=== PATIENT | male | born 1960 | race Caucasian/White ===

== ENCOUNTER 2020-09-17 09:13 | Outpatient (CLI) | payer OTHER, SELFPAY ==
--- NOTE | 2020-09-17 09:26 | MR_ITS ---
WS: [id number] MRI LUMBAR SPINE NONCONTRAST TECHNIQUE: Sagittal T1, T2 and STIR imaging. Axial T1 and T2 imaging. CLINICAL INFORMATION: ACUTE LOW BACK PAIN COMPARISON: None. FINDINGS: Mild lumbar curve. No acute compression. Pedicle screw fixation L4-5 with interbody fusion. Schmorl's nodes in the lower thoracic and upper lumbar spine. L1-L2: Normal. L2-L3: No significant disc bulging. Mild facet arthropathy. Spinal canal and foramen are patent. L3-L4: Mild annular bulging with a small central protrusion and tiny annular fissure. Mild central ca nal stenosis. Mild facet arthropathy. Foramen are patent. L4-L5: Pedicle screw fixation with interbody fusion. Mild facet arthropathy. Spinal canal and foramen are patent. L5-S1: No significant disc bulging. Mild facet arthropathy. Spinal canal and foramen are patent. Mild disc bulging C5-C6 on the chainstitch hemmer imaging. Mild central canal stenosis. Visualized pelvic bony structures: Normal. Paravertebral soft tissues: Normal. MR/MR lumbar spine wo con* [id number] IMPRESSION: 1. Mild lumbar curve. No acute compression. No high-grade central canal stenos is. 2. Pedicle screw fixation L4-5 with interbody fusion. 3. Mild annular bulging L3-4 with a small shallow central protrusion and tiny annular fissure. Mild central canal stenosis. 4. Mild facet arthropathy L3-L5. 5. Tiny central protrusion C5-6 with mild central canal stenosis in the chainstitch hemmer imaging.
--- NOTE | 2020-09-17 09:28 | XR_ITS ---
WS: [id number] LUMBAR SPINE TECHNIQUE: 3 views of the lumbar spine CLINICAL INFORMATION: LOW BACK PAIN COMPARISON: None. FINDINGS: Osteopenia. Minimal lumbar curve. Pedicle screw fixation L4-5. Interbody bone fusion L4-5 is solid in appearance. Mild chronic anterior wedging in the lower thoracic and upper lumbar spine. Mild facet a rthropathy L4-L5 and L5-S1. XR/XR lumbar spine 2-3V* [id number] IMPRESSION: 1. Normal L4-5 pedicle screw fixation with interbody bony fusion. 2. No other significant findings.
== END 2020-09-17 09:14 | disposition home or self-care (01) ==
PROVIDERS: PCP Nurse Practitioner; Visit Provider Nurse Practitioner
DX: M54.5 Low back pain (principal); M50.222 Other cervical disc displacement at C5-C6 level; M47.816 Spondylosis without myelopathy or radiculopathy, lumbar region
CPT/HCPCS: 72100; 72148

== ENCOUNTER → 2021-08-09 00:01 | Outpatient (BNVA) | payer OTHER, SELFPAY | PROVIDERS: PCP Nurse Practitioner; Visit Provider Registered Nurse Neonatal Intensive Care | DX: Z20.822 Contact with and (suspected) exposure to COVID-19 (principal) | CPT/HCPCS: 87635 ==

== ENCOUNTER 2021-09-24 10:01 | Inpatient (IN) | payer OTHER, SELFPAY ==
[2021-09-24 10:11] VITALS: BP 132/11; PULSE 69; RESP 14; BMI 32.8
--- NOTE | 2021-09-24 10:25 | ECG_ITS ---
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 Measurements Intervals [place] Rate: 69 P: 43 SC: 197 QRS: 2 QRSD: 109 T: 31 QT: 370 QTc: 398 Interpretive Statements SINUS RHYTHM WITH OCCASIONAL SUPRAVENTRICULAR PREMATURE COMPLEXES No previous ECG available for comparison Electronically Signed On 09-24-2021 17:33:49 IT FIELD TECHNICIAN by Jez Oliva M.D. [email or web address] memorial hospitalBatzu Med[facility]ub[email or web address]/NU/[id number] f
--- NOTE | 2021-09-24 10:25 | XR_ITS ---
WS: [id number] PORTABLE CHEST HISTORY: RIGHT shoulder and chest pain. COMPARISON: 06/24/2015 Radiograph obtained in a lordotic position. The lungs are clear. No effusion. Normal vasculature. No pneumonia. No pleural effusion or pneumothorax. Cardiac size: Normal. Mediastinum/Aorta: Normal mediastinum. No osseous abnormality seen. XR/XR chest 1V portable [id number] IMPRESSION: No acute cardiopulmonary disease.
--- NOTE | 2021-09-24 10:29 | PC.NURSE ---
pt placed on continuous spo2, nibp, and cm.
[2021-09-24 10:49] LABS: Basophils # 0.1 10^3/uL (0.0-0.1); Basophils % 1.7 %; Eosinophils # 0.3 10^3/uL (0.0-0.8); Eosinophils % 6.3 %; Hematocrit 45.8 % (42.0-52.0); Hemoglobin 15.2 g/dL (11.7-16.6); Lymphocytes # 1.5 10^3/uL (0.8-4.8); Lymphocytes % 28.8 %; Mean Corpuscular HGB Conc 33.2 g/dL (30.0-36.0); Mean Corpuscular Volume 90.5 fl (80-94); Mean Platelet Volume 10.8 fL (7.4-10.4); Monocytes # 0.7 10^3/uL (0.2-0.9); Monocytes % 12.7 %; Neutrophils # 2.66 10^3/uL (1.8-7.7); Neutrophils % 50.3 %; Nucleated Red Blood Cells % 0 %; Platelet Count 222 10^3/cmm (130-400); Red Blood Count 5.06 10^6/uL (4.1-5.3); White Blood Count 5.3 10^3/uL (4.0-10.0)
[2021-09-24 11:05] LABS: Alanine Aminotransferase 61 U/L (0-41); Albumin Level 4.7 g/dL (3.5-5.2); Alkaline Phosphatase 80 IU/L (40-130); Anion Gap 17.4 (5-19); Aspartate Amino Transferase 47 U/L (0-40); Blood Urea Nitrogen 13 mg/dL (8-23); Carbon Dioxide 23 mmol/L (22-29); Chloride 101 mmol/L (98-107); Globulin 3.1 g/dL (1.3-4.6); Glomerular Filtration Rate 75.5 mL/min (90-130); Glucose 110 mg/dL (65-115); Osmolality Calculated 285 mOsm/kg (285-295); Potassium 4.4 mmol/L (3.5-5.1); Sodium 137 mmol/L (136-145); Total Bilirubin 0.6 mg/dL (0.15-1.2); Total Protein 7.8 g/dL (6.6-8.7)
[2021-09-24 11:06] LABS: Troponin(5th) Baseline 28 ng/L (0-15)
[2021-09-24 11:07] LABS: Creatine Phosphokinase 450 U/L (39-308)
--- NOTE | 2021-09-24 11:07 | W.ED.CHESTPA ---
HPI - Chest Pain General: Chief Complaint: Chest Pain Stated Complaint: cp Time Seen by Provider: 09/24/21 10:24 Source: patient Mode of arrival: ambulatory Limitations: no limitations History of Present Illness: 61-year-old female presents to the emergency room with complaint of chest pain radiating to the right shoulder. Began while at rest has had several waxing and waning type episodes. He was talking to him he noticed some increased discomfort. Is not been associated with diaphoresis nausea or vomiting or shortness of breath. He states 2 days ago he walks 3-1/2 miles he seemed a little sore after that but he never had any chest pain during the night. He has not taken anything for it. MD complaint: chest pain Onset (ago): minute(s) Timing of current episode: episodic Prior episodes: No Onset: during rest Pain location: substernal Pain radiation: right shoulder Severity: mild Quality: aching Relieving factors: nothing Exacerbating factors: nothing Associated symptoms: Deny abdominal pain, diaphoresis, dyspnea, fever(s), leg edema, nausea, palpitations, sense of impending doom, syncope or vomiting Treatment prior to arrival: none Review of Systems Const: Denies: fever(s) or diaphoresis ENMT: Denies: throat pain, ear or mastoid pain, nasal discharge or nasal congestion Card: Denies: palpitations or syncope Resp: Denies: dyspnea GI: Denies: abdominal pain, nausea or vomiting : Denies: flank pain, dysuria, urinary frequency or urinary urgency Skin/Breast: Denies: rash or pruritus [facility] ED PFSH: Medical History COVID-19 07/2021 Diverticulitis HTN (hypertension) Hypertriglyceridemia Hypothyroidism Osteoarthritis Personal history of chronic sinusitis Status post administration of all doses of COVID-19 vaccine series Surgical History History of back surgery History of bowel resection 2019 History of elbow surgery History of laparoscopy S/P cholecystectomy 1994 S/P eye surgery S/P left knee arthroscopy 2012 S/P lumbar spinal fusion 2009 Family History Mother Diabetes Father Diabetes Heart disease Family history of CABG Sister Diabetes Other Heart failure Social History Smoking and tobacco status: never smoked Substance/Drug Use: never Marital status: Current occupational status: retired 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 [employer] 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 Physical Exam Const: COMMON NORMALS: no acute distress GENERAL APPEARANCE: cooperative and comfortable ORIENTATION/CONSCIOUSNESS: Yes awake, Yes oriented to person, Yes oriented to place and Yes oriented to time HENMT: COMMON NORMALS: normocephalic, atraumatic, hearing grossly normal bilaterally, external ears normal, EAC's normal, TM's normal bilaterally and Normal nasal mucous membranes and turbinates present HEAD & SCALP: normocephalic and atraumatic NOSE: Normal nasal mucous membranes and turbinates present EXTERNAL EAR: Yes external ears normal EXTERNAL AUDITORY CANAL: EAC's normal TYMPANIC MEMBRANE: TM's normal bilaterally Eye: COMMON NORMALS: Equal, round and reactive pupils present, EOMs intact bilaterally, conjunctivae normal and no scleral icterus CONJUNCTIVA: Yes conjunctivae normal PUPIL: Yes Equal, round and reactive pupils present Neck/C-Spine: COMMON NORMALS: no JVD Lymph: LYMPHATIC: no lymphadenopathy noted and no lymphedema noted Resp: COMMON NORMALS: normal respiratory effort, No retractions, No use of accessory muscles and clear to auscultation bilaterally AUSCULTATION: clear to auscultation bilaterally Cardio: COMMON NORMALS: no JVD, regular rate, regular rhythm and No murmurs present (Cardio) RATE: regular rate RHYTHM: regular rhythm GI: COMMON NORMALS: Soft to palpation and No hepatosplenomegaly present AUSCULTATION: Yes normoactive bowel sounds PALPATION: Yes Soft to palpation, No Tenderness to palpation present (GI), No Guarding due to palpation present (GI) and Yes No hepatosplenomegaly present Extremity: COMMON NORMALS: normal to inspection, capillary refill normal, no clubbing, cyanosis or edema, no calf tenderness and no pedal edema Neuro: SENSORIUM/ORIENTATION: Yes oriented to person, Yes oriented to place and Yes oriented to time Skin: COMMON NORMALS: no rashes or lesions noted GENERAL SKIN EXAM: no rashes or lesions noted Course Vital Signs: Vital signs: Vital Signs Temperature 97.8 F 09/25/21 15:33 Pulse Rate 53 L 09/26/21 04:25 Respiratory Rate 14 09/26/21 04:00 Blood Pressure 126/87 09/26/21 04:00 Pulse Oximetry 93 09/26/21 03:30 MDM - Chest Pain Medical Decision Making Symptoms waxing and waning while at rest with positive delta troponin. We will go ahead and admit the patient discussed with hospitalist consult cardiology. No acute EKG changes, reviewed as found in the chart. Medical Records I reviewed the patient's medical records. Lab Data I reviewed the patient's lab results. : 09/26/21 02:38 09/26/21 02:38 Radiology Impressions Chest X-Ray 09/24/21 10:25 IMPRESSION: No acute cardiopulmonary disease. Laboratory Results WBC 5.3 10^3/uL (4.0-10.0) 09/24/21 10: RBC 5.06 10^6/uL (4.1-5.3) 09/24/21 10:22 Hgb 15.2 g/dL (11.7-16.6) 09/24/21 10:22 Hct 45.8 % (42.0-52.0) 09/24/21 10:22 MCV 90.5 fl (80-94) 09/24/21 10:22 MCH 30.0 pg (28.0-34.0) 09/24/21 10:22 MCHC 33.2 g/dL (30.0-36.0) 09/24/21 10:22 RDW 13.0 % (12.1-15.1) 09/24/21 10:22 Plt Count 222 10^3/cmm (130-400) 09/24/21 10:22 MPV 10.8 fL (7.4-10.4) H 09/24/21 10:22 Neut % (Auto) 50.3 % 09/24/21 10:22 Lymph % (Auto) 28.8 % 09/24/21 10:22 [place] % (Auto) 12.7 % 09/24/21 10:22 Eos % (Auto) 6.3 % 09/24/21 10:22 Baso % (Auto) 1.7 % 09/24/21 10:22 Neut # (Auto) 2.66 10^3/uL (1.8-7.7) 09/24/21 10:22 Lymph # (Auto) 1.5 10^3/uL (0.8-4.8) 09/24/21 10:22 [place] # (Auto) 0.7 10^3/uL (0.2-0.9) 09/24/21 10:22 Eos # (Auto) 0.3 10^3/uL (0.0-0.8) 09/24/21 10:22 Baso # (Auto) 0.1 10^3/uL (0.0-0.1) 09/24/21 10:22 Nucleated RBC % (auto) 0 % 09/24/21 10:22 Nucleated RBCs # 0.0 /100WBC 09/24/21 10:22 PT 13.10 SECONDS (12.1-14.9) 09/24/21 10: INR 0.96 (0.8-1.2) 09/24/21 10: APTT 29.2 SECONDS (23.9-36.7) 09/24/21 10:22 D-Dimer 0.32 ug/mIFEU (0-0.59) 09/24/21 10:20 Sodium 137 mmol/L (136-145) 09/24/21 10:22 Potassium 4.4 mmol/L (3.5-5.1) 09/24/21 10:22 Chloride 101 mmol/L (98-107) 09/24/21 10: Carbon Dioxide 23 mmol/L (22-29) 09/24/21 10:22 Anion Gap 17.4 (5-19) 09/24/21 10:22 BUN 13 mg/dL (8-23) 09/24/21 10:22 Creatinine 1.0 mg/dL (0.7-1.2) 09/24/21 10:22 GFR Calculation 75.5 mL/min (90-130) L 09/24/21 10:22 Glucose 110 mg/dL (65-115) 09/24/21 10:22 Calculated Osmolality 285 mOsm/kg (285-295) 09/24/21 10:22 Calcium 10.0 mg/dL (8.5-10.5) 09/24/21 10:22 Total Bilirubin 0.6 mg/dL (0.15-1.2) 09/24/21 10:22 AST 47 U/L (0-40) H 09/24/21 10:22 ALT 61 U/L (0-41) H 09/24/21 10:22 Alkaline Phosphatase 80 IU/L (40-130) 09/24/21 10:22 Creatine Kinase 450 U/L (39-308) H* 09/24/21 10:22 CK-MB (CK-2) 5.1 ng/mL (0-10.4) 09/24/21 12:04 CK-MB (CK-2) Rel Index 5.5 % (0.0-5.3) H 09/24/21 10:22 Troponin T Baseline 28 ng/L (0-15) H 09/24/21 10:22 Troponin T 120 Minute 39.22 ng/L (0-15) H 09/24/21 12:04 Delta Troponin T 11.22 ABS# (0-10) H* 09/24/21 12:04 Troponin T Hi Sens 6Hr 49.04 ng/L (0-15) H 09/24/21 16:36 Troponin T Hi Sens 6Hr Delta 21.04 ng/L (0-12) H* 09/24/21 16:36 NT-Pro-B Natriuret Pep 5 pg/mL (0-125) 09/24/21 12:04 Total Protein 7.8 g/dL (6.6-8.7) 09/24/21 10:22 Albumin 4.7 g/dL (3.5-5.2) 09/24/21 10:22 Globulin 3.1 g/dL (1.3-4.6) 09/24/21 10:22 Discharge Plan Discharge Patient Disposition: Admitted As Inpatient Admit Provider: Michelle Cote Clinical Impression: Non-ST elevation DC (NSTEMI), HTN (hypertension), Transaminitis, History of COVID-19, Hypothyroidism Condition: Stable Coding Level of Care Code ED Manager Community for [facility]g Fwd Exam Comprehensive
--- NOTE | 2021-09-24 12:25 | ECG_ITS ---
[facility] Test Date: 2021-09-24 Pat Name: Avni Carlson Department: Room: Gender: Male Quality Head: : 1960 Requested By: Ricardo Maya Order Number: [id number] Alanna MD: Jez Oliva M.D. Measurements Intervals [place] Rate: 61 P: 45 ND: 198 QRS: 5 QRSD: 114 T: 23 QT: 386 QTc: 390 Interpretive Statements SINUS RHYTHM MODERATE INTRAVENTRICULAR CONDUCTION DELAY [110+ ms QRS DURATION] Compared to ECG 09/24/2021 10:16:33 Intraventricular conduction delay now present Electronically Signed On 09-24-2021 17:37:56 DIE TESTER by Jez Oliva M.D. [id number]
[2021-09-24 12:33] LABS: Troponin 5 2HR 39.22 ng/L (0-15)
[2021-09-24 12:35] LABS: Troponin 5 2HR Delta 11.22 ABS# (0-10)
--- NOTE | 2021-09-24 13:25 | PM.HP ---
Providers/Chief Complaint Admitting Physician: Michelle Cote MD Primary Care Provider: Loretta Norman APN Chief Complaint: chest pain History of Present Illness Avni Carlson is a 61 year old male who presented to the emergency room with chief complaint of chest pain. In talking with him he has been having intermittent issues with right shoulder pain off and on that he attributed to arthritis discomfort. This past Thursday the pain was more significant after he went for 3 mile or so walk. He had previously walked several miles a day regularly, but over the course of the last 2 years has had several medical issues and has gotten out of the habit. Most recently he had COVID at the end of July and this past Thursday was his first time getting out after that. The pain seemed to be present with walking and went away with rest. He had some intermittent discomfort in the shoulder yesterday but again did not think much of it. 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 He described the pain as like a torn ligament . It was waxing and waning chest pain that started out as mild but progressively worsened. He had some diaphoresis and reports dizziness when he bends over but denied any associated shortness of breath, nausea, vomiting or palpitations. Blood pressure was checked at the school and was found to be elevated at 170/110. With continued episodes of significant chest discomfort, he called his and said he was coming into the emergency room. On arrival here, blood pressures were 140s over 80s. He was given some nitroglycerin and IV morphine with improvement in his chest pain as well as his right arm pain. While in the emergency room he had recurrence of the discomfort that again resolved after receiving nitroglycerin. Initial troponin was in the mid 20s. 2-hour troponin showed delta at 11. Patient was given Lovenox treatment dose and some Nitropaste and is being admitted for further evaluation and treatment. At the time of my evaluation he has not had recurrence of his symptoms although it has only been 20 to 30 minutes or so since last treatments were administered. Twelve-lead EKG does not show any acute ST segment changes. Patient has history of hypertension and hypertriglyceridemia but denies personal history of coronary artery disease. His father did have heart problems in his 50s and underwent bypass surgery three-vessel. Review of Systems Const: Reports: change in sleep pattern (Poor sleep); Denies: fever(s) or chills ENMT: Reports: nasal congestion (chronic sinus symptoms) and epistaxis (Has a small amount of bright red blood every morning when he blows his nose); Denies: throat pain Card: Reports: chest pain, lightheadedness (with bending over) and dyspnea on exertion; Denies: palpitations, edema or orthopnea Resp: Denies: dyspnea, productive cough, non-productive cough or pain on inspiration GI: Reports: nausea and other (no recent change in bowel movement); Denies: abdominal pain, vomiting, hematochezia or melena : Reports: difficulty starting urination and nocturia (x 1); Denies: hematuria Musc: Reports: neck pain, back pain, extremity pain (right shoulder as per HPI today; often general aches and pains otherwise) and other (back and neck pain limit physical activity sometimes) Skin/Breast: Denies: sores Neuro: Denies: numbness in extremities, weakness in extremities, Slurred speech present or difficulty communicating thoughts Psych: Denies: anxiety or depression Man/Lymph: Denies: easy bruising or easy bleeding Medications/Allergies Home Medications Medication Instructions Recorded Confirmed Last Taken Type fenofibrate nanocrystallized 145 145 mg PO QDAY 08/15/19 09/24/21 09/23/21 History mg tablet fluticasone propionate 50 2 spray INTRANASAL QDAY 08/15/19 09/24/21 09/23/21 History mcg/actuation nasal spray,suspension (Flonase Allergy Relief) hydrocodone 5 mg-acetaminophen 325 1 tab PO Q6H PRN 08/15/19 09/24/21 09/23/21 History mg tablet levothyroxine 150 mcg capsule 150 mcg PO QDAY 08/15/19 09/24/21 09/23/21 History loratadine 10 mg tablet (Claritin) 10 mg PO QDAY 08/15/19 09/24/21 09/23/21 History omeprazole magnesium 20 mg 20 mg PO QDAY 08/15/19 09/24/21 09/23/21 History tablet,delayed release (Prilosec OTC) cyclobenzaprine 10 mg tablet 10 mg PO DAILY PRN 09/24/21 09/24/21 Unknown History olmesartan 5 mg tablet 5 mg PO DAILY 09/24/21 09/24/21 09/24/21 History Allergies Allergy/AdvReac Type Severity Reaction Status Date / Time lisinopril Allergy Unknown Unknown Verified 08/09/21 12:10 PFSH Acute PFSH: Medical History (Updated 09/24/21 @ 19:53 by Michelle Cote MD) COVID-19 07/2021 Diverticulitis HTN (hypertension) Hypertriglyceridemia Hypothyroidism Osteoarthritis Personal history of chronic sinusitis Status post administration of all doses of COVID-19 vaccine series Surgical History History of back surgery History of bowel resection 2019 History of elbow surgery History of laparoscopy S/P cholecystectomy 1994 S/P eye surgery S/P left knee arthroscopy 2012 S/P lumbar spinal fusion 2009 Family History Mother Diabetes Father Diabetes Heart disease Family history of CABG Sister Diabetes Other Heart failure Social History (Updated 09/24/21 @ 20:23 by Michelle Cote MD) Smoking and tobacco status: never smoked Marital status: Current occupational status: retired 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 [employer] 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 Vitals/I&O/Wt Last Vital Signs Pulse 69 09/24/21 10:11 Resp 14 09/24/21 10:11 BP 132/11 09/24/21 10:11 Weight last 48 hrs Weight 122.47 kg Physical Exam Narrative: Constitutional: Awake and alert, cooperative HEENT: Normocephalic, atraumatic, pupils are equal reactive, moist mucous membranes Neck: Supple Respiratory: Clear to auscultation without any rales rhonchi or wheezes noted, no accessory muscle use Cardiovascular: Regular rate and rhythm without any murmurs gallops or rubs Abdomen: Soft, nontender, positive bowel sounds Extremities: No pitting edema or calf tenderness, good range of motion of the right shoulder without any reproducible point tenderness or pain in extension, abduction, abduction, internal and external rotation Skin: Dry, no rashes Neuro: Speech clear, face symmetric, handgrip equal, strength equal both lower extremities, no abnormal movements Psych: Normal affect, oriented x 4 Data : 09/24/21 10:22 09/24/21 10:22 Other Labs: Radiology Impressions Chest X-Ray 09/24/21 10:25 IMPRESSION: No acute cardiopulmonary disease. Laboratory Results WBC 5.3 10^3/uL (4.0-10.0) 09/24/21 10: RBC 5.06 10^6/uL (4.1-5.3) 09/24/21 10: Hgb 15.2 g/dL (11.7-16.6) 09/24/21 10:22 Hct 45.8 % (42.0-52.0) 09/24/21 10:22 MCV 90.5 fl (80-94) 09/24/21 10: MCH 30.0 pg (28.0-34.0) 09/24/21 10: MCHC 33.2 g/dL (30.0-36.0) 09/24/21 10: RDW 13.0 % (12.1-15.1) 09/24/21 10: Plt Count 222 10^3/cmm (130-400) 09/24/21 10: MPV 10.8 fL (7.4-10.4) H 09/24/21 10:22 Neut % (Auto) 50.3 % 09/24/21 10:22 Lymph % (Auto) 28.8 % 09/24/21 10:22 [place] % (Auto) 12.7 % 09/24/21 10:22 Eos % (Auto) 6.3 % 09/24/21 10:22 Baso % (Auto) 1.7 % 09/24/21 10:22 Neut # (Auto) 2.66 10^3/uL (1.8-7.7) 09/24/21 10:22 Lymph # (Auto) 1.5 10^3/uL (0.8-4.8) 09/24/21 10:22 [place] # (Auto) 0.7 10^3/uL (0.2-0.9) 09/24/21 10:22 Eos # (Auto) 0.3 10^3/uL (0.0-0.8) 09/24/21 10:22 Baso # (Auto) 0.1 10^3/uL (0.0-0.1) 09/24/21 10:22 Nucleated RBC % (auto) 0 % 09/24/21 10:22 Nucleated RBCs # 0.0 /100WBC 09/24/21 10:22 Sodium 137 mmol/L (136-145) 09/24/21 10:22 Potassium 4.4 mmol/L (3.5-5.1) 09/24/21 10:22 Chloride 101 mmol/L (98-107) 09/24/21 10:22 Carbon Dioxide 23 mmol/L (22-29) 09/24/21 10:22 Anion Gap 17.4 (5-19) 09/24/21 10:22 BUN 13 mg/dL (8-23) 09/24/21 10:22 Creatinine 1.0 mg/dL (0.7-1.2) 09/24/21 10:22 GFR Calculation 75.5 mL/min (90-130) L 09/24/21 10:22 Glucose 110 mg/dL (65-115) 09/24/21 10:22 Calculated Osmolality 285 mOsm/kg (285-295) 09/24/21 10:22 Calcium 10.0 mg/dL (8.5-10.5) 09/24/21 10:22 Total Bilirubin 0.6 mg/dL (0.15-1.2) 09/24/21 10:22 AST 47 U/L (0-40) H 09/24/21 10:22 ALT 61 U/L (0-41) H 09/24/21 10:22 Alkaline Phosphatase 80 IU/L (40-130) 09/24/21 10:22 Creatine Kinase 450 U/L (39-308) H* 09/24/21 10:22 CK-MB (CK-2) Rel Index 5.5 % (0.0-5.3) H 09/24/21 10:22 Troponin T Baseline 28 ng/L (0-15) H 09/24/21 10:22 Troponin T 120 Minute 39.22 ng/L (0-15) H 09/24/21 12:04 Delta Troponin T 11.22 ABS# (0-10) H* 09/24/21 12:04 Total Protein 7.8 g/dL (6.6-8.7) 09/24/21 10:22 Albumin 4.7 g/dL (3.5-5.2) 09/24/21 10:22 Globulin 3.1 g/dL (1.3-4.6) 09/24/21 10:22 A&P Assessment and plan (1) Acute coronary syndrome with high troponin: In a patient without known history of CAD. Pain radiates to right shoulder rather than left but is otherwise fairly classic description for unstable angina. Has risks factors of family history, known hypertension, known hypertriglyceridemia, BMI 32 Status: Acute (2) Transaminitis: Mild. Reports had some elevation when last had blood work by PCP, values not available for comparison. Had COVID at end . Not grossly volume overloaded. No abdominal pain but some nausea. Status: Acute (3) HTN (hypertension): Chronically on low dose olmesartan Status: Chronic Qualifiers: Hypertension type: primary hypertension Qualified Code(s): I10 - Essential (primary) hypertension (4) Hypertriglyceridemia: Chronically on fenofibrate Status: Chronic (5) BMI 32.0-32.9,adult: Status: Acute (6) Hypothyroidism: Chronically on levothyroxze Status: Chronic Qualifiers: Hypothyroidism type: acquired Qualified Code(s): E03.9 - Hypothyroidism, unspecified (7) Osteoarthritis: With chronic back and neck pain, as well as some joint pains, has prescriptions for hydrocodone and flexeril but takes neither daily Status: Chronic Qualifiers: Osteoarthritis location: multiple joints Osteoarthritis type: primary Qualified Code(s): M15.9 - Polyosteoarthritis, unspecified (8) History of COVID-19: Tested positive via home test 08/08/2021, received monoclonal antibody treatment, was vaccinated prior to infection Status: Chronic Plan Observation admission for now Continue serial cardiac enzymes and EKGs, add MB fraction Continue full anticoagulation Continue nitroglycerin Aspirin and statin therapy Cardiology consultation, have spoken with Dr. Osei, to facilitate determination of preferred testing, stress testing versus cardiac catheterization Beta-blockade Continue home fenofibrate Continue low-dose ARB Echocardiogram has been ordered Check BNP and coagulation studies Lipid panel in the morning Telemetry monitoring Monitor blood pressures with additional medications Recheck LFTs in the morning Continue home levothyroxine Continue home Flonase, Claritin for allergies Continue as needed hydrocodone and Flexeril Check D-dimer given symptoms and COVID diagnosis at the end July, with patient and his that study will be primarily useful if it is normal Lovenox treatment dose will provide appropriate VTE prophylaxis currently Supportive care otherwise Findings, concerns and plans were discussed with patient and his and both were given an opportunity to ask questions Currently anticipate discharge home with outpatient follow-up though will ultimately depend on clinical course Full code Attestations Medical Necessity Statement*: Currently anticipate a stay less than two midnights in the patient with chest pain that, while a touch atypical, is quite suspicious for unstable angina with positive troponin delta of 11. Plans are as noted above. Given escalation of symptoms today and risk factors at risk of cardiovascular compromise if appropriate evaluation and treatment is not undertaken. 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
[2021-09-24] MEDS: enoxaparin 120 mg/0.8 mL Syringe SUBCUT (13:29)
[2021-09-24 13:30] VITALS: RESP 20
[2021-09-24 13:30] LABS: CKMB Relative Index 5.5 % (0.0-5.3)
[2021-09-24] MEDS: aspirin 81 mg Chew Tablet 324 MG PO (13:30)
[2021-09-24] MEDS: morphine 4 mg/mL SDV 1 mL IVP (13:30)
--- NOTE | 2021-09-24 13:30 | USCV_ITS ---
Avni Carlson Age: 61 Gender: M : 1960 Exam Date: 09/24/2021 14:35 Ordering Phys: Michelle Cote MD Technologist: Nikko Bowers [place] [facility] [place] CHEST PAIN WITH INCREASING TROPONIN BP: 133 / 86 HR: 67 Rhythm: Sinus Technical Quality: Adequate MEASUREMENTS (Male / Female) Normal Values 2D ECHO LV Diastolic Diameter PLAX 4.1 cm 4.2 - 5.9 / 3.9 - 5.3 cm LV Systolic Diameter PLAX 2.7 cm IVS Diastolic Thickness 1.0 cm 0.6 - 1.0 / 0.6 - 0.9 cm IVS Systolic Thickness 1.3 cm LVPW Diastolic Thickness 1.4 cm 0.6 - 1.0 / 0.6 - 0.9 cm LVPW Systolic Thickness 1.6 cm LVOT Diameter 2.0 cm LV Ejection Fraction 2D Teich 61.6 % LV Ejection Fraction MOD 2C 69.3 % LV Ejection Fraction 2C AL 70.5 % LA Diameter 3.5 cm LA Width 2.8 cm LA Height 3.6 cm RA Width 2.9 cm RA Height 4.1 cm Aorta at Sinotubular Diameter 2.6 cm M-MODE Aortic Annulus Diameter 3.8 cm LA Ao Ratio MM 0.9 MV E Point Septal Separation 0.5 cm DOPPLER AV Peak Velocity 91.0 cm/s LVOT Peak Velocity 75.0 cm/s AV Area Cont Eq vti 2.9 cm squared AV Area Cont Eq pk 2.7 cm squared MV Area PHT 3.9 cm squared Mitral E to A Ratio 0.8 MV E' Velocity 47.0 cm/s Mitral E to LV E' Septal Ratio 7.9 TR Peak Velocity 210.8 cm/s TR Peak Gradient 17.8 mmHg TR Mean Velocity 181.4 cm/s TR Mean Gradient 13.3 mmHg TR Velocity Time Integral 60.5 cm RV Acceleration Time 0.2 s RV Ejection Time 0.3 s RV AcT/ET 0.6 FINDINGS Left Ventricle Normal left ventricular size and systolic function, EF 67 %. No regional wall motion abnormalities. Grade I/IV diastolic dysfunction (abnormal relaxation filling pattern), normal to mildly elevated filling pressures. Mild left ventricular hypertrophy. Right Ventricle The right ventricle is normal in size and function. Right Atrium The right atrium is normal in size. Left Atrium The left atrium is normal in size. Mitral Valve Thickened mitral valve. Aortic Valve No gross abnormalities noted Tricuspid Valve No gross abnormalities noted Pulmonic Valve Pulmonic valve not well visualized. Pericardium Normal pericardium without effusion. Aorta Normal ascending aorta dimension. CONCLUSIONS Normal left ventricular size and systolic function, EF 67 %. No regional wall motion abnormalities. Grade I/IV diastolic dysfunction (abnormal relaxation filling pattern), normal to mildly elevated filling pressures. Mild left ventricular hypertrophy. Thickened mitral valve. No other valvular abnormalities. Normal chamber sizes. No pericardial effusion No previous study is available for comparison. Dr Theodore Osei MD FACC (Electronically Signed) Final Date: 24 September 2021 16:32 S
[2021-09-24] MEDS: nitroglycerin 1 gm/inch oint Pkt 1 INCH TOPICAL ×2 (13:31→20:44)
[2021-09-24 13:55] LABS: INR 0.96 (0.8-1.2)
[2021-09-24 13:56] LABS: Partial Thromboplastin Time 29.2 SECONDS (23.9-36.7)
[2021-09-24 14:11] LABS: CKMB 5.1 ng/mL (0-10.4); NT Pro B Type Natriuretic Pept 5 pg/mL (0-125)
--- NOTE | 2021-09-24 15:04 | PC.NURSE ---
WHILE AT BEDSIDE ULTRASOUND AT BEDSIDE. PT IS IN NAD. PT DENIES ANY FURTHER NEEDS.
[2021-09-24 16:15] LABS: D Dimer 0.32 ug/mIFEU (0-0.59)
--- NOTE | 2021-09-24 16:25 | ECG_ITS ---
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 Measurements Intervals [place] Rate: 62 P: 50 DE: 206 QRS: 10 QRSD: 111 T: 34 QT: 394 QTc: 402 Interpretive Statements SINUS RHYTHM MODERATE INTRAVENTRICULAR CONDUCTION DELAY [110+ ms QRS DURATION] Compared to ECG 09/24/2021 12:32:40 No significant changes Electronically Signed On 09-24-2021 17:37:48 CONCRETE CURER by Jez Oliva M.D. [email or web address]
[2021-09-24 17:14] LABS: Troponin 5 6HR 49.04 ng/L (0-15)
[2021-09-24 17:16] LABS: Troponin 5 6HR Delta 21.04 ng/L (0-12)
--- NOTE | 2021-09-24 17:22 | P.CONIM_ITS ---
Providers/Reason For Consult Consulting Physician/Specialty*: SANDRA Osei MD/cardiology Reason for Consult*: Patient with chest pain, high blood pressure, dyslipidemia, elevated troponin T Requesting Physician: Dr. Cote Attending Physician: Dr. Cote Primary Care Provider: Loretta Norman APN History of Present Illness History of Present Illness Avni Carlson is a 61 year old male with a history of hypertension and dyslipidemia, apparently has been in his baseline state of health up until 7.45 this morning when he started having right shoulder pain associated with pain in the mid substernal region and a hot feeling. 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 His blood pressure was found to be elevated in the 170s at that time. The intensity of the pain was moderate to severe. He had a several episodes of pain, each time lasting for 5 minutes to 30 minutes. Because of these episodes, he decided to come home. The pain might have subsided for a while but then it started coming back again. Because of these recurrent episodes of pains, he decided come to the hospital emergency room. In the emergency room also, he had a few episodes of pains. He was given IV morphine, sublingual nitro, topical nitrates and p.o. aspirin. He also was given subcu Lovenox. His symptoms finally started subsiding. For the last 3 hours or so, he is totally pain-free. He has no other associated symptoms or radiation of pain. He has no obvious history for any coronary disease, myocardial infarction or congestive heart failure. A week ago, he had some substernal chest pain which lasted for couple of minutes and then subsided spontaneously. He never had this type of pain in the past. His father had a myocardial infarction in his late 50s. 2 of his paternal uncles also had a myocardial infarction. One of his paternal aunts also is known to have coronary artery disease. All the paternal uncles and aunts also have diabetes. No other relevant family history. He denies any smoking abuse or alcohol abuse. He has a history of hypothyroidism and is taking thyroid replacement. No other significant past medical history. Review of Systems Const: Denies: fever(s), chills, change in appetite or change in weight Eyes: Denies: change in vision ENMT: Denies: throat pain or nasal congestion Card: Denies: chest pain, palpitations or edema Resp: Denies: dyspnea, productive cough or non-productive cough GI: Denies: abdominal pain, nausea, vomiting, diarrhea, constipation, hematochezia or melena : Denies: hematuria Skin/Breast: Denies: rash, pruritus or sores Neuro: Denies: headache(s), numbness in extremities, weakness in extremities or difficulty walking Psych: Denies: anxiety or depression Man/Lymph: Denies: easy bruising or easy bleeding Medications/Allergies Home Medications Medication Instructions Recorded Confirmed Last Taken Type fenofibrate nanocrystallized 145 145 mg PO QDAY 08/15/19 09/24/21 09/23/21 History mg tablet fluticasone propionate 50 2 spray INTRANASAL QDAY 08/15/19 09/24/21 09/23/21 History mcg/actuation nasal spray,suspension (Flonase Allergy Relief) hydrocodone 5 mg-acetaminophen 325 1 tab PO Q6H PRN 08/15/19 09/24/21 09/23/21 History mg tablet levothyroxine 150 mcg capsule 150 mcg PO QDAY 08/15/19 09/24/21 09/23/21 History loratadine 10 mg tablet (Claritin) 10 mg PO QDAY 08/15/19 09/24/21 09/23/21 History omeprazole magnesium 20 mg 20 mg PO QDAY 08/15/19 09/24/21 09/23/21 History tablet,delayed release (Prilosec OTC) cyclobenzaprine 10 mg tablet 10 mg PO DAILY PRN 09/24/21 09/24/21 Unknown History olmesartan 5 mg tablet 5 mg PO DAILY 09/24/21 09/24/21 09/24/21 History Allergies Allergy/AdvReac Type Severity Reaction Status Date / Time lisinopril Allergy Unknown Unknown Verified 08/09/21 12:10 PFSH Acute PFSH: Medical History (Updated 09/24/21 @ 19:53 by Michelle Cote MD) COVID-19 07/2021 Diverticulitis HTN (hypertension) Hypertriglyceridemia Hypothyroidism Osteoarthritis Personal history of chronic sinusitis Status post administration of all doses of COVID-19 vaccine series Surgical History History of back surgery History of bowel resection 2019 History of elbow surgery History of laparoscopy S/P cholecystectomy 1994 S/P eye surgery S/P left knee arthroscopy 2012 S/P lumbar spinal fusion 2009 Family History Mother Diabetes Father Diabetes Heart disease Family history of CABG Sister Diabetes Other Heart failure Social History (Updated 09/24/21 @ 20:23 by Michelle Cote MD) Smoking and tobacco status: never smoked Substance/Drug Use: never Marital status: Current occupational status: retired 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 Not in any acute distress. HEENT: No significant pallor, icterus or lymphadenopathy. The pupils are reactant to light. Oral cavity: There are no mucous membrane lesions. Funduscopic examination: The fundus is not visualized NECK: Trachea appears to be central. No masses noted. No JVD or thyromegaly appreciated. No carotid bruit. RESPIRATORY: Chest is symmetrical. No intercostals muscle retraction or any accessory muscle activation. There is no chest wall tenderness. Breath sounds are heard bilaterally. No rales or rhonchi heard. No evidence of any consolidation. BREASTS: Deferred. HEART: The PMI could not be palpated. No palpable precordial events. S1 and S2 are normal. No S3 or S4 heard. No pericardial rub or any click heard. ABDOMEN: No vessel pulsations or distention. No tenderness. No organomegaly appreciated. No abdominal bruit. Bowel sounds are normally heard. : Deferred. RECTAL: Deferred. LYMPHATIC: No lymphadenopathy noted in the neck or groin. EXTREMITIES: No edema or cyanosis. No clubbing. The pulses are symmetrical bi laterally. The radial, femoral, dorsalis pedis and the posterior tibial pulses are palpated and found to be in good volume and amplitude. MUSCULOSKELETAL: No acute joint deformities or swelling. SKIN: There are no significant scars or skin rash noted. NEUROPSYCHIATRIC: The patient is alert and oriented x3. Appears to be in a good mood. The higher functions are grossly within normal limits. No tremors or rigidity noted. Data : 09/25/21 04:04 09/25/21 04:04 Other Labs: Laboratory Last Values WBC 5.3 10^3/uL (4.0-10.0) 09/24/21 10:22 RBC 5.06 10^6/uL (4.1-5.3) 09/24/21 10:22 Hgb 15.2 g/dL (11.7-16.6) 09/24/21 10:22 Hct 45.8 % (42.0-52.0) 09/24/21 10:22 MCV 90.5 fl (80-94) 09/24/21 10:22 MCH 30.0 pg (28.0-34.0) 09/24/21 10: MCHC 33.2 g/dL (30.0-36.0) 09/24/21 10: RDW 13.0 % (12.1-15.1) 09/24/21 10:22 Plt Count 222 10^3/cmm (130-400) 09/24/21 10:22 MPV 10.8 fL (7.4-10.4) H 09/24/21 10:22 Neut % (Auto) 50.3 % 09/24/21 10:22 Lymph % (Auto) 28.8 % 09/24/21 10:22 Owsley % (Auto) 12.7 % 09/24/21 10:22 Eos % (Auto) 6.3 % 09/24/21 10:22 Baso % (Auto) 1.7 % 09/24/21 10:22 Neut # (Auto) 2.66 10^3/uL (1.8-7.7) 09/24/21 10:22 Lymph # (Auto) 1.5 10^3/uL (0.8-4.8) 09/24/21 10:22 Owsley # (Auto) 0.7 10^3/uL (0.2-0.9) 09/24/21 10:22 Eos # (Auto) 0.3 10^3/uL (0.0-0.8) 09/24/21 10:22 Baso # (Auto) 0.1 10^3/uL (0.0-0.1) 09/24/21 10:22 Nucleated RBC % (auto) 0 % 09/24/21 10:22 Nucleated RBCs # 0.0 /100WBC 09/24/21 10:22 PT 13.10 SECONDS (12.1-14.9) 09/24/21 10:22 INR 0.96 (0.8-1.2) 09/24/21 10:22 APTT 29.2 SECONDS (23.9-36.7) 09/24/21 10:22 D-Dimer 0.32 ug/mIFEU (0-0.59) 09/24/21 10:20 Sodium 137 mmol/L (136-145) 09/24/21 10:22 Potassium 4.4 mmol/L (3.5-5.1) 09/24/21 10:22 Chloride 101 mmol/L (98-107) 09/24/21 10: Carbon Dioxide 23 mmol/L (22-29) 09/24/21 10:22 Anion Gap 17.4 (5-19) 09/24/21 10:22 BUN 13 mg/dL (8-23) 09/24/21 10:22 Creatinine 1.0 mg/dL (0.7-1.2) 09/24/21 10:22 GFR Calculation 75.5 mL/min (90-130) L 09/24/21 10:22 Glucose 110 mg/dL (65-115) 09/24/21 10:22 Calculated Osmolality 285 mOsm/kg (285-295) 09/24/21 10:22 Calcium 10.0 mg/dL (8.5-10.5) 09/24/21 10:22 Total Bilirubin 0.6 mg/dL (0.15-1.2) 09/24/21 10:22 AST 47 U/L (0-40) H 09/24/21 10:22 ALT 61 U/L (0-41) H 09/24/21 10:22 Alkaline Phosphatase 80 IU/L (40-130) 09/24/21 10:22 Creatine Kinase 450 U/L (39-308) H* 09/24/21 10:22 CK-MB (CK-2) 5.1 ng/mL (0-10.4) 09/24/21 12:04 CK-MB (CK-2) Rel Index 5.5 % (0.0-5.3) H 09/24/21 10:22 Troponin T Baseline 28 ng/L (0-15) H 09/24/21 10:22 Troponin T 120 Minute 39.22 ng/L (0-15) H 09/24/21 12:04 Delta Troponin T 11.22 ABS# (0-10) H* 09/24/21 12:04 Troponin T Hi Sens 6Hr 49.04 ng/L (0-15) H 09/24/21 16:36 Troponin T Hi Sens 6Hr Delta 21.04 ng/L (0-12) H* 09/24/21 16:36 NT-Pro-B Natriuret Pep 5 pg/mL (0-125) 09/24/21 12:04 Total Protein 7.8 g/dL (6.6-8.7) 09/24/21 10:22 Albumin 4.7 g/dL (3.5-5.2) 09/24/21 10: Globulin 3.1 g/dL (1.3-4.6) 09/24/21 10:22 Echo: My impression: Normal left ventricular size and systolic function, EF 67 %. No ?regional wall motion abnormalities. Grade I/IV diastolic ?dysfunction (abnormal relaxation filling pattern), normal to ?mildly elevated filling pressures. Mild left ventricular ?hypertrophy. ?Thickened mitral valve. ?No other valvular abnormalities. ?Normal chamber sizes. ?No pericardial effusion ?No previous study is available for comparison. EKG 1: My Interpretation: Normal sinus rhythm with a normal ST Ts EKG computer-generated impression: Chest X-Ray 09/24/21 10:25 IMPRESSION: No acute cardiopulmonary disease. A&P Assessment and plan (1) Acute coronary syndrome with high troponin: Patient is a clinical features are consistent with acute coronary syndrome/non- ST elevation myocardial infarction. Currently he is pain-free. The EKG is unremarkable. Echocardiogram also appears to be unremarkable. It is possible that he may have involvement of the left circumflex artery. He may be treated with nitrates, aspirin, Plavix, Lovenox and beta-iván. Need to be closely monitored on telemetry. Status: Acute (2) HTN (hypertension): Currently the blood pressure is in the normal range. Patient may be continued on the current medications for the time being. Status: Chronic Qualifiers: Hypertension type: primary hypertension Qualified Code(s): I10 - Essent ial (primary) hypertension (3) Hypothyroidism: Clinically euthyroid. May continue on the current medications. Status: Chronic Qualifiers: Hypothyroidism type: acquired Qualified Code(s): E03.9 - Hypothyroidism, unspecified (4) Hyperlipidemia: Patient may be started on Lipitor 40 mg p.o. now and daily. Status: Inactive Qualifiers: Hyperlipidemia type: mixed hyperlipidemia Qualified Code(s): E78.2 - Mixed hyperlipidemia Plan Patient may be given Plavix 300 mg p.o. now followed by 75 mg p.o. daily. Weight-based Lovenox would be appropriate. May continue on the aspirin low-dose of beta-iván and the other medications. For further evaluation of his coronary arteries, he may benefit from a cardiac catheterization. This was discussed with the patient in detail. The risk of bleeding, hematoma, vascular injury, myocardial infarction, CVA, renal failure and other concomitant complications were explained in detail. Patient understood this well and consented to proceed. We may go ahead and schedule for the cardiac catheterization tomorrow. Based on the angiogram findings, further recommendations will be made. Thank you for the opportunity to eval this patient make these recommendations. Consult Attestations Medical Necessity Statement: Patient requires continued hospital stay for close monitoring and further management Coding Level of Care Code Acute Personal Injury Attorney for Tien Moffett History Detailed Medical Decision Making High Complexity Diagnoses HTN (hypertension) I10 Hypertension type: primary hypertension Hypothyroidism E03.9 Hypothyroidism type: acquired Hyperlipidemia E78.2 Hyperlipidemia type: mixed hyperlipidemia Acute coronary syndrome with high troponin I24.9
--- NOTE | 2021-09-24 17:23 | ECG_ITS ---
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 Measurements Intervals [place] Rate: 67 P: 53 UT: 196 QRS: 1 QRSD: 111 T: 34 QT: 382 QTc: 404 Interpretive Statements SINUS RHYTHM MODERATE INTRAVENTRICULAR CONDUCTION DELAY [110+ ms QRS DURATION] INTERPRETATION BASED ON A DEFAULT AGE OF 40 YEARS Compared to ECG 09/24/2021 12:49:42 No significant changes Electronically Signed On 09-24-2021 20:22:06 TOBACCO CLASSER by Jez Oliva M.D. [id number]
[2021-09-24] MEDS: acetaminophen 500 mg Tablet 1000 MG PO (18:43)
--- NOTE | 2021-09-24 19:10 | PC.NURSE ---
REPORT GIVEN TO SATNAM CALABRESE ASSUMED CARE.
[2021-09-24 19:52] VITALS: PULSE 65
[2021-09-24 20:00] VITALS: BP 128/79; PULSE 65; RESP 19; O2SAT 94
[2021-09-24] MEDS: fluticasone nasal spray 16gm Btl 2 SPRAY INTRANASAL (20:41)
[2021-09-24] MEDS: loratadine 10 mg Tablet PO (20:44)
[2021-09-24] MEDS: atorvastatin 40 mg Tablet PO (20:44)
[2021-09-24] MEDS: metoprolol tartrate 25 mg Tablet PO (20:44)
[2021-09-24] MEDS: clopidogrel 300 mg Tablet PO (20:44)
[2021-09-24] MEDS: sodium chloride 0.9% 1,000 ML 75 ML IV (20:45)
[2021-09-24 22:00] VITALS: PULSE 60
[2021-09-24 23:14] VITALS: BP 114/77; PULSE 58; RESP 25; TEMP 36.1; O2SAT 96
[2021-09-24] MEDS: cyclobenzaprine 10 mg Tablet PO (23:28)
[2021-09-25] VITALS (37 sets, daily range): BP systolic 113–188; BP diastolic 67–100; PULSE 52–74; RESP 9–23; TEMP 36.3–36.6; O2SAT 87–97
[2021-09-25] MEDS: enoxaparin 120 mg/0.8 mL Syringe SUBCUT (02:33)
[2021-09-25] MEDS: nitroglycerin 1 gm/inch oint Pkt 1 INCH TOPICAL ×2 (02:34→12:01)
[2021-09-25 04:47] LABS: Basophils # 0.1 10^3/uL (0.0-0.1); Basophils % 1.5 %; Eosinophils # 0.4 10^3/uL (0.0-0.8); Eosinophils % 7.5 %; Hematocrit 43.1 % (42.0-52.0); Mean Corpuscular HGB Conc 32.5 g/dL (30.0-36.0); Mean Corpuscular Hemoglobin 29.6 pg (28.0-34.0); Mean Corpuscular Volume 91.1 fl (80-94); Mean Platelet Volume 10.7 fL (7.4-10.4); Monocytes # 0.6 10^3/uL (0.2-0.9); Monocytes % 11.8 %; Neutrophils # 2.24 10^3/uL (1.8-7.7); Nucleated Red Blood Cells % 0 %; Platelet Count 225 10^3/cmm (130-400); Red Blood Count 4.73 10^6/uL (4.1-5.3); Red Cell Distribution Width 12.9 % (12.1-15.1); White Blood Count 5.3 10^3/uL (4.0-10.0)
--- NOTE | 2021-09-25 04:48 | PC.NURSE ---
Pt lying in bed resting with eyes closed. Resp even and non-labored no distress noted. Pt has no c/o pain or discomfort at the present time. No Needs voiced at the present time. Call light in reach. Will continue to monitor.
[2021-09-25 05:09] LABS: Alanine Aminotransferase 51 U/L (0-41); Albumin Level 4.4 g/dL (3.5-5.2); Alkaline Phosphatase 70 IU/L (40-130); Anion Gap 14.4 (5-19); Aspartate Amino Transferase 43 U/L (0-40); Blood Urea Nitrogen 15 mg/dL (8-23); Calcium 9.8 mg/dL (8.5-10.5); Carbon Dioxide 26 mmol/L (22-29); Chloride 102 mmol/L (98-107); Globulin 2.5 g/dL (1.3-4.6); Glomerular Filtration Rate 67.6 mL/min (90-130); Glucose 135 mg/dL (65-115); Magnesium 1.8 mg/dL (1.7-2.3); Osmolality Calculated 289 mOsm/kg (285-295); Potassium 4.4 mmol/L (3.5-5.1); Sodium 138 mmol/L (136-145); Total Bilirubin 0.6 mg/dL (0.15-1.2); Total Protein 6.9 g/dL (6.6-8.7)
[2021-09-25 05:12] LABS: Chol HDL Ratio 5.76 mg/dL (1.0-5.00); Cholesterol 196 mg/dL (0-200); HDL Cholesterol 34 mg/dL (60-100); LDL Cholesterol Calculated 119 mg/dL (50-129); Triglycerides 213 mg/dL (0-150)
[2021-09-25] MEDS: levothyroxine 150 mcg Tablet PO (06:00)
[2021-09-25] MEDS: sodium chloride 0.9% 1,000 ML 50 ML IV (06:01)
--- NOTE | 2021-09-25 08:26 | XACV_ITS ---
Exam Room: [facility] Ht: 193 cm Wt: 122 kg BSA: 2.59 m2 Gender: Male : 1960 Exam Priority: Routine Procedure(s): Procedure Description: Diagnostic procedure Procedure Description: PCI procedure Procedure Description: Left Heart Catheterization Procedure Description: Drug Eluting Coronary Stent Procedure Description: PTCA Procedure Description: Miscellaneous Procedure Description: ACT Procedure Description: Coronary Angiography Sea VERA; Diagnostic Cath Status: Urgent Diagnostic Findings * The left main is a medium caliber vessel with no significant stenotic lesions. * The left anterior descending artery is a medium caliber vessel with a diffuse ectasia in the proximal and mid segment. The mid segment was found to have a high-grade tapering narrowing of around 99% towards the origin of the second septal pc analyst. The distal artery was found to have mild diffuse intimal irregularities. The first diagonal branches found to have around 50 to 60% ostial narrowing. * The left circumflex artery is a medium caliber nondominant vessel with mild diffuse ectasia in the proximal segment. Minimal intimal irregularities are noted in the proximal segment. No significant stenotic lesions. * The right coronary artery is a medium to large caliber ectatic vessel with 20 to 30% diffuse intimal irregularities in the proximal to mid segment. The PDA branch also was found to have around 40 to 50% segmental narrowing in the proximal segment. * INDICATION: Non ST elevation LA. PCI Status: Urgent PCI Indication: NSTE - ACS Interventional Findings * PROCEDURE DETAILS: We engaged the left main artery with XB 3.5 guide catheter. IV heparin was used to maintain an ACT above 250s. Using super cross microcatheter, run-through guidewire was crossed into distal LAD. We first performed balloon angioplasty with 2.5 x 15 mm semicompliant balloon. This was followed by placement of 3.5 x 34 mm resolute Brooke stent. At the distal edge there was stent still stenosis noted. We covered that with 3.0 x 22 mm resolute Brooke stent. At this time final angiogram was performed that showed excellent stent expansion, no residual stenosis and ANNITA-3 flow. Guidewire and guide catheter were removed. Patient left the Window Cutter in a stable condition.. * Mid Left Anterior Descendin% stenosis treated with a AB TREK 2.50X15 RX BALLOON, MDT R BROOKE 3.5X34 GAMA, and MDT R BROOKE 3.0X22 GAMA. Conclusions 1. 61-year-old white male, with a history of high blood pressure and dyslipidemia, is admitted to the hospital with the symptoms of unstable angina. Clinical features are consistent with a non-ST elevation myocardial infarction. For further evaluation of physical status, cardiac catheterization was recommended. Patient underwent left heart catheterization with left and right coronary angiogram and LV angiogram today. The findings are as follows. 2. High-grade tapering stenosis of around 99% in the mid segment of the left anterior descending artery. 50% ostial narrowing in the first diagonal branch. Diffuse coronary ectasia. 40 to 50% segmental narrowing in the PDA branch of the right coronary artery. Normal ejection fraction of 60%. Left ventriculardiastolic dysfunction with an end-diastolic pressure of 24 mmHg. 3. S/p successful revascularization of mid LAD with GAMA x2. 4. Mid Left Anterior Descending was treated with a Balloon, Drug Eluting Stent, and Drug Eluting Stent. Recommendations * Aspirin and Plavix for at least 1 year. * High intensity statin therapy. * Beta-iván therapy. * Outpatient cardiology follow-up in 4 weeks. Interventional RX Recommendation: PCI w/o planned CABG Diagnostic RX Recommendation: PCI w/o planned CABG Anticoagulation: Heparin Ventriculography Ejection Fraction: 60.0 % LV EDP: 24 mmHg Left Ventriculography Findings: * LV gram was performed in the GILL placed. The LV cavity appeared to be of normal size. There was no significant wall motion normalities. No filling defects. No significant mitral valve prolapse or mitral regurgitation. The overall ejection fraction was 60%. Pressures Phase:Rest AO : 90 / 74 ( 83 ) @ 10:08:00 AM 117 / 76 ( 94 ) @ 10:21:00 AM 110 / 70 ( 87 ) @ 10:21:00 AM LV : 118 / 3 / 24 @ 10:19:00 AM 127 / 4 / 23 @ 10:20:00 AM 124 / 8 / 30 @ 10:21:00 AM Valves Phase:DefaultPhase AV : 5.0 @ 10:47:04 AM AV Mean Gradient: 15.0 @ 10:47:04 AM Clinical Evaluation EBL: 5mL-10mL Procedural Details Procedure Consent Obtained. Admit Source: In Patient. Pre-Procedure Time Out. Identified patient by full name and date of as verbalized by the patient/guarantor. Does the consent match the physician's order: Yes. Accurate & Complete Informed Consent: Yes. Inpatient/Outpatient History & Physical on Chart: Yes. Visualize and Verify Site with Patient/Guarantor: N/A. Relevant Radiology Images available: N/A. The risks, benefits, and alternatives of sedation and/or procedure were discussed by physician. The patient agrees to continue. Procedure started. [facility] Clinical Fraility Score: 3: Managing Well. Window Cutter Indications: Worsening Angina. Chest Pain Symptom Assessment: Atypical Angina. Correct patient, site and procedure confirmed by cath team. Current diagnosis: Chest Pain. PERRLA. Strong, equal hand hoop bender tank bilaterally. Lungs clear x 5 lobes. IV Site on Arrival: 20 gauge in the left anticubital. IV Fluids: 0.9% NaCl at KVO. 500 mL infused prior to qc lab technician. Pre Procedural Pulses: bilateral radial was 2+. Pre Procedural Pulses: bilateral dorsalis pedis was 2+. Oxygen started at 2liters/min via nasal canula. right groin was prepped with chloroprep then draped in the usual sterile fashion. right radial was prepped with chloroprep then draped in the usual sterile fashion. Baseline sample Acquired. HR: 60 BPM. Physician notified. Physician arrived. Physician scrubbed in. Immediate Pre-Procedure Time Out. Correct Patient: Yes; Correct Procedure: Yes; Correct Site: Yes; Correct Patient Position: Yes; Correct Supplies: Yes; Dried Flammable Prep: Yes; Blood Products Available: Yes;. Lidocaine 1% infiltrated to the right radial. Arterial access obtained. A 5 citizen [place] Rodney catheter in over wire. Multiple views taken of left coronary artery. Catheter out. A 5 [place] JR4 catheter in over glidewire. Catheter redirected to the RCA. Multiple views taken of right coronary artery. Catheter out over glidewire. A 5 [place] Pigtail catheter in over wire. Glidewire out. EDP Sample taken: LV 118/3,24; HR: 56 BPM; SpO2: 97%. LV gram performed in GILL @ 10 mL/second for a total of 30 mL. EDP Sample taken: LV 127/4,23; HR: 54 BPM; SpO2: 98%. Pullback taken: LV 124/8,30; AO 117/76(94); Mean: 15mmHg, Peak to Peak: 5mmHg, SEP: 4sec/min; HR: 55 BPM; SpO2: 98%. ACT drawn. Results 197 seconds. Therapeutic limits - pre-heparin administration 90-150 seconds and monitoring heparin during a vascular procedure >250 seconds. Physician scrubbed out. Side port of sheath attached to Normal Saline flush at KVO to maintain patency. Dr. Oliva scrubbed in. Pig tail catheter out over glidewire. 6 [place] XB 3.5 guide catheter was inserted over the wire. Glidewire removed. Runthrough guidewire was advanced through the guide catheter to lesion in the mid LAD. Supercross microcatheter inserted over runthrough wire. Runthrough wire out. 300cm runthrough guidewire was advanced through the supercross catheter to lesion in the mid LAD. Supercross catheter removed over the wire. Runthrough 300cm wire removed. Supercross catheter in over runthrough 180cm wire. Anesthesia arrived to perform sedation due to patient inability to follow directions and continued movement. Short Runthrough wire removed. 300 cm Runthrough wire advanced through the guide catheter. Supercross catheter out over runthrough. Inflation number : 1 A AB TREK 2.50X15 RX BALLOON was prepped and advanced across the Mid LAD , then inflated to 14 JAYY for 0:11 seconds. Inflation number: 2 The AB TREK 2.50X15 RX BALLOON was reinflated across the Mid LAD, to 14 JAYY for 0:11 seconds. Inflation number: 3 The AB TREK 2.50X15 RX BALLOON was reinflated across the Mid LAD, to 12 JAYY for 0:10seconds. Balloon out. Inflation Number : 4 A MDT R BROOKE 3.5X34 GAMA -Lot Number#[id number] EXP 05-29-2022 was prepped and advanced across the Mid LAD. The stent was deployed at 12 JAYY for 0:32 seconds. Stent balloon out over wire. Angiography performed, checking results. Inflation Number : 5 A MDT R BROOKE 3.0X22 GAMA -Lot Number#[id number] EXP 06-19-2024 was prepped and advanced across the Mid LAD. The stent was deployed at 12 JAYY for 0:26 seconds. Inflation number: 6 The stent balloon was then re-inflated across the Mid LAD to 12 JAYY for 0:05 seconds. Stent balloon out over wire. Wire out. Guide catheter out. ACT drawn. Results 244 seconds. Therapeutic limits - pre-heparin administration 90-150 seconds and monitoring heparin during a vascular procedure >250 seconds. Post Procedure: Pulses reassessed and unchanged. PERRLA. Strong, equal hand hoop bender tank bilaterally. No VTE prophylaxis required. PCI Indication: NSTE. Post-op diagnosis: Subtotal occlusion MID LAD, Status post PCI. Complications: None. Estimated blood loss: 5mL-10mL. Responsiveness - Normal response to verbal stimuli; alert and oriented, PERRLA. Airway - Unaffected, no intervention required; spontaneous ventilation. Circulation: W/N/L, pulses unchanged. Nausea/Vomiting: No. A TR Band was successful obtaining hemostatsis at the Right Radial artery insertion site. Total IV fluids: 500 mL. Medication's Wasted: Lidocaine 1% = 18 mL. Medication's Wasted: Nitro = 49.6 mg. Medication's Wasted: Heparin = 3000 unit. Procedure completed. Patient transferred by wheelchair to 1st floor. Vital chart was stopped. Access Site Site: Right Radial artery Sheath Size: 6 Fr Hemostasis Method: TR Band Hemostasis Success: Successful Procedure Medications Start: 8:56 AM Stop: 8:56 AM Medication: Fentanyl Amount: 25 mcg Route: I.V. Start: 8:56 AM Stop: 8:56 AM Medication: Versed Amount: 1 mg Route: I.V. Start: 9:00 AM Stop: 9:00 AM Medication: Versed Amount: 1 mg Route: I.V. Start: 9:00 AM Stop: 9:00 AM Medication: Fentanyl Amount: 50 mcg Route: I.V. Start: 9:03 AM Stop: 9:03 AM Medication: Verapamil Amount: 5 mg Route: I.A. Start: 9:04 AM Stop: 9:04 AM Medication: 0.9% Saline Amount: 250 ml Route: I.V. bolus Start: 9:04 AM Stop: 9:04 AM Medication: Nitrogylcerin Amount: 200 mcg Route: I.A. Start: 9:06 AM Stop: 9:06 AM Medication: Heparin Amount: 5000 units Route: I.V. Start: 9:29 AM Stop: 9:29 AM Medication: Heparin Amount: 5000 units Route: I.V. Start: 9:29 AM Stop: 9:29 AM Medication: Versed Amount: 1 mg Route: I.V. Start: 9:29 AM Stop: 9:29 AM Medication: Fentanyl Amount: 50 mcg Route: I.V. Start: 9:41 AM Stop: 9:41 AM Medication: Versed Amount: 1 mg Route: I.V. Start: 9:41 AM Stop: 9:41 AM Medication: Fentanyl Amount: 50 mcg Route: I.V. Start: 9:47 AM Stop: 9:47 AM Medication: Heparin Amount: 2000 units Route: I.V. Start: 9:54 AM Stop: 9:54 AM Medication: Versed Amount: 2 mg Route: I.V. Start: 9:55 AM Stop: 9:55 AM Medication: Heparin Amount: 1000 units Route: I.V. Start: 9:58 AM Stop: 9:58 AM Medication: Diphendryamine Amount: 25 mg Route: I.V. Start: 10:09 AM Stop: 10: AM Medication: Morphine Amount: 2 mg Route: I.V. Start: 10:29 AM Stop: 10: AM Medication: Nitrogylcerin Amount: 200 mcg Route: I.C. Start: 10:30 AM Stop: 10:30 AM Medication: Heparin Amount: 2000 units Route: I.V. Start: 10:36 AM Stop: 10:36 AM Medication: Nitrogylcerin Amount: 200 mcg Route: I.C. Start: 10:44 AM Stop: :44 AM Medication: Heparin Amount: 1000 units Route: I.V. I, the attending physician, have reviewed and verified all procedure medications. Yes, all medications given per verbal order History/Risk Factors Hypertension: Yes Dyslipidemia: Yes Peripheral Arterial Disease (PAD): No Myocardial Infarction (LA): No Obesity: No Renal Disease: No Tobacco Use: Former Prior Interventions PCI: No CABG: No Valve Surgery: No Report Signatures Interventional Workflow Finalized by Jez Oliva MD on 10/09/2021 06:05 PM Diagnostic Workflow Finalized by Dr Theodore Osei MD [facility] on 09/26/2021 12:32 AM
--- NOTE | 2021-09-25 08:48 | W.PM.OPSUD ---
Surgery/Procedure H&P Update DATE OF PROCEDURE: September 25, 2021 DATE H&P PERFORMED: 09/24/21 H&P UPDATE INFORMATION: I have reviewed H&P completed within last 30 days, I have examined patient prior to procedure and No changes to prior documentation PLANNED PROCEDURE: Operation Date: 09/25/21 10:00 Proposed Procedures p Cardiac Catheterization(Left) - Theodore Osei MD PATIENT REASSESSED PRIOR TO SEDATION, WITH NO CHANGE NOTED: Yes PHYSICAL EXAM: alert, oriented x 3, clear to auscultation bilaterally and regular rate & rhythm AIRWAY EVAL/ANESTHESIA PLAN: ASA II, Monitored Anesthesia, Local Anesthesia, Risks, benefits & alternatives of sedation and/or procedure discussed and Patient agrees to continue as planned
--- NOTE | 2021-09-25 09:42 | PC.NURSE ---
received report, reviewed poc. pt up using restroom and shaving self for lab coordinator. no needs identified at this time. pt has no c/o chest pain
--- NOTE | 2021-09-25 09:52 | PC.CHAP ---
Pastoral Care Encounter/Spiritual Assessment Type of Contact [] Declined long wall mining machine tender visit [] Patient/Family/Request visit [] Outpatient visit [] Follow-up visit [] Physician referral [] Code/Alert [x] Routine visit [] Staff referral [] Actively dying [] Patient sleeping [] Family support [] [x] Out of room [] Palliative care [] [] Receiving care in room [] Pre-surgical visit [] Trauma [] Long length of stay [] ICU visit [x] Other: lab technician Relational/Emotional Strength [] Patient feels connected with others/family/visitors/staff [] Distress [] Loneliness/isolation [] Abandonment Spirituality of Patient [] Person of Massiel [] Attends Amish of their Massiel [] Believes in Prayer [] Reads Bible or Taoist materials [] There are Spiritual issues to be addressed Associate Genetics Professor Interventions [x] Prayer [] Active listening [] Non-anxious presence [] Spiritual/emotional support [] Crisis/trauma care [] Spiritual counseling [] Bereavement support [] Provided bereavement packet [] Provided Bible/devotional materials [] Provided toy/stuffed animal, coloring book to patient or family member [] Provided Communion [] Anointing/Hamlet [] Salvation x] Completed spiritual assessment [] Other: Impact on Illness or Injury [] Angry [] Fearful [] Anxious [] Often cries [] Exhaustion [] Unable to work [] Unable to attend scientologist [] Unable to walk/stand [] Unable to read [] Unable to drive [] Unable to eat/drink [] Unable to sleep [] Unable to be with family [] Patient intubated [] Other: Summary Time spent with patient
--- NOTE | 2021-09-25 11:10 | ANES.PREANE2 ---
Pre-Anesthetic Assessment Height/Weight: Height 1.93 m Weight 122.47 kg Temp Pulse Resp BP Pulse Ox 97.9 F 57 L 10 L 118/72 91 09/25/21 08:00 09/25/21 08:00 09/25/21 08:00 09/25/21 09:00 09/25/21 08:00 Operation Date: 09/25/21 10:00 Proposed Procedures p Cardiac Catheterization(Left) - Theodore Osei MD Was Beta Baltazar taken within 24 hours: N/A Was Clonidine taken within 24 hours: N/A CV/HEM Hypertension In research laboratory technician for coronary stent [facility] Osteoarthritis/DJD Anesthetic Plan ASA status: 4 (61 year old male with acute occlusion of LAD undergoing cath procedure) Anesthesia: Anesthesia Evaluation and MAC Other: No consent from patient. Patient not tolerating nurse administered sedation in research laboratory technician. Called to research laboratory technician for urgernt help with sedation of patient undergoing procedure in left anterior descending coronary artery. Risk of > 500 ml blood loss (7ml/kg in children): No Medications/Allergies Home Medications Medication Instructions Recorded Confirmed Last Taken Type fenofibrate nanocrystallized 145 145 mg PO QDAY 08/15/19 09/24/21 09/23/21 History mg tablet fluticasone propionate 50 2 spray INTRANASAL QDAY 08/15/19 09/24/21 09/23/21 History mcg/actuation nasal spray,suspension (Flonase Allergy Relief) hydrocodone 5 mg-acetaminophen 325 1 tab PO Q6H PRN 08/15/19 09/24/21 09/23/21 History mg tablet levothyroxine 150 mcg capsule 150 mcg PO QDAY 08/15/19 09/24/21 09/23/21 History loratadine 10 mg tablet (Claritin) 10 mg PO QDAY 08/15/19 09/24/21 09/23/21 History omeprazole magnesium 20 mg 20 mg PO QDAY 08/15/19 09/24/21 09/23/21 History tablet,delayed release (Prilosec OTC) cyclobenzaprine 10 mg tablet 10 mg PO DAILY PRN 09/24/21 09/24/21 Unknown History olmesartan 5 mg tablet 5 mg PO DAILY 09/24/21 09/24/21 09/24/21 History Allergies Allergy/AdvReac Type Severity Reaction Status Date / Time lisinopril Allergy Unknown Unknown Verified 08/09/21 12:10 Current Medications Generic Name Dose Route Start Last Admin Trade Name Freq PRN Reason Stop Dose Admin Atorvastatin Calcium 40 mg 09/24/21 21:00 09/24/21 20:44 Atorvastatin 40 Mg Tablet PO 40 mg BEDTIME DAVID Administration Cyclobenzaprine HCl 10 mg 09/24/21 20:07 09/24/21 23:28 Cyclobenzaprine 10 Mg Tablet PO 10 mg TID PRN Administration MUSCLE SPASMS Enoxaparin Sodium 120 mg 09/25/21 01:00 09/25/21 02:33 Enoxaparin 120 Mg/0.8 Ml Syringe SUBCUT 120 mg Q12H DAVID Administration Fluticasone Propionate 2 spray 09/24/21 19:52 09/24/21 20:41 Fluticasone Nasal [place] 16gm Btl INTRANASAL 2 bottle DAILY DAVID Administration Sodium Chloride 1,000 mls @ 75 mls/hr 09/24/21 19:52 09/24/21 20:45 Sodium Chloride 0.9% IV 75 mls/hr .[id number] DAVID Administration Sodium Chloride 1,000 mls @ 50 mls/hr 09/24/21 21:55 09/25/21 06:01 Sodium Chloride 0.9% IV 09/25/21 17:54 50 mls/hr .Q20H ONE Administration Levothyroxine Sodium 150 mcg 09/25/21 06:00 09/25/21 06:00 Levothyroxine 150 Mcg Tablet PO 150 mcg QAM DAVID Administration Loratadine 10 mg 09/24/21 19:52 09/24/21 20:44 Loratadine 10 Mg Tablet PO 10 mg DAILY DAVID Administration Metoprolol Tartrate 25 mg 09/24/21 21:00 09/24/21 20:44 Metoprolol Tartrate 25 Mg Tablet PO 25 mg BID@0900,2100 DAVID Administration Nitroglycerin 1 inch 09/24/21 20:00 09/25/21 02:34 Nitroglycerin 1 Gm/Inch Oint Pkt TOPICAL 1 inch Q6H DAVID Administration PFSH Anesthesia Medical History COVID-19 07/2021 Diverticulitis HTN (hypertension) Hypertriglyceridemia Hypothyroidism Osteoarthritis Personal history of chronic sinusitis Status post administration of all doses of COVID-19 vaccine series Surgical History History of back surgery History of bowel resection 2019 History of elbow surgery History of laparoscopy S/P cholecystectomy 1994 S/P eye surgery S/P left knee arthroscopy 2012 S/P lumbar spinal fusion 2010 Family History Mother Diabetes Father Diabetes Heart disease Family history of CABG Sister Diabetes Other Heart failure Social History Smoking and tobacco status: never smoked Substance/Drug Use: never Marital status: Current occupational status: retired 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 [employer] 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 Data Anesthesia : 09/25/21 04:04 09/25/21 04:04 Short CBC 09/24/21 09/25/21 Range/Units 10:22 04:04 WBC 5.3 5.3 (4.0-10.0) 10^3/uL Hgb 15.2 14.0 (11.7-16.6) g/dL Hct 45.8 43.1 (42.0-52.0) % MCV 90.5 91.1 (80-94) fl Plt Count 222 225 (130-400) 10^3/cmm Neut % (Auto) 50.3 42.0 % Neut # (Auto) 2.66 2.24 (1.8-7.7) 10^3/uL BMP 09/24/21 09/25/21 10:22 04:04 Sodium 137 138 Potassium 4.4 4.4 Chloride 101 102 Carbon Dioxide 23 26 BUN 13 15 Creatinine 1.0 1.1 Glucose 110 135 H Calcium 10.0 9.8 Cardiac Enzymes 09/24/21 09/24/21 09/24/21 Range/Units 10:22 10:22 12:04 Creatine Kinase 450 H* (39-308) U/L CK-MB (CK-2) (0-10.4) ng/mL CK-MB (CK-2) Rel Index 5.5 H (0.0-5.3) % Troponin T Baseline 28 H (0-15) ng/L Troponin T 120 Minute 39.22 H (0-15) ng/L Delta Troponin T 11.22 H* (0-10) ABS# Troponin T Hi Sens 6Hr (0-15) ng/L Troponin T Hi Sens 6Hr Delta (0-12) ng/L NT-Pro-B Natriuret Pep (0-125) pg/mL 09/24/21 09/24/21 Range/Units 12:04 16:36 Creatine Kinase (39-308) U/L CK-MB (CK-2) 5.1 (0-10.4) ng/mL CK-MB (CK-2) Rel Index (0.0-5.3) % Troponin T Baseline (0-15) ng/L Troponin T 120 Minute (0-15) ng/L Delta Troponin T (0-10) ABS# Troponin T Hi Sens 6Hr 49.04 H (0-15) ng/L Troponin T Hi Sens 6Hr Delta 21.04 H* (0-12) ng/L NT-Pro-B Natriuret Pep 5 (0-125) pg/mL Liver Function 09/24/21 09/25/21 Range/Units 10:22 04:04 Total Bilirubin 0.6 0.6 (0.15-1.2) mg/dL AST 47 H 43 H (0-40) U/L ALT 61 H 51 H (0-41) U/L Alkaline Phosphatase 80 70 (40-130) IU/L Albumin 4.7 4.4 (3.5-5.2) g/dL Coags 09/24/21 09/24/21 10:20 10:22 PT 13.10 INR 0.96 APTT 29.2 D-Dimer 0.32 Cardiac Studies: Echocardiogram 09/24/21
--- NOTE | 2021-09-25 11:13 | ANE.PACU2 ---
Inpatient post-anesthesia follow up: Airway intact: Yes Vital signs: Temperature 97.9 F Pulse Rate 57 Respiratory Rate 10 Blood Pressure 118/72 Pulse Oximetry 91 Oxygen Delivery Me thod Room Air Oxygen Flow Rate Fraction of Inspir ed Oxygen Hydration adequate: Yes Nausea and vomiting: No Pain level: 1 Mental status: Baseline
--- NOTE | 2021-09-25 11:39 | PM.PN ---
Subjective Subjective: Patient was seen this morning, he tells me that he has a headache, he is awaiting his cardiac stress testing, currently no chest pain Vitals/I&O/Wt Last Vital Signs Temp 97.5 F L 09/25/21 11:13 Pulse 60 09/25/21 11:13 Resp 18 09/25/21 11:13 BP 156/89 09/25/21 11:13 Pulse Ox 97 09/25/21 11:13 09/24/21 09/25/21 09/25/21 22:59 06:59 14:59 Intake Total 100 / 100 0 / 100 Output Total 950 / 950 Balance 100 / 100 -950 / -850 Weight last 48 hrs Weight 122.47 kg Physical Exam Const: COMMON NORMALS: no acute distress and patient oriented x3 Resp: COMMON NORMALS: normal respiratory effort, No retractions, No use of accessory muscles and clear to auscultation bilaterally AUSCULTATION: clear to auscultation bilaterally Cardio: COMMON NORMALS: regular rate, regular rhythm, S1 normal heart sound present and S2 normal heart sound present RATE: regular rate RHYTHM: regular rhythm HEART SOUNDS: S1 normal heart sound present and S2 normal heart sound present GI: COMMON NORMALS: Normal to inspection, nondistended, normoactive bowel sounds present, Soft to palpation, non-tender, No hepatosplenomegaly present and no masses PALPATION: Yes Soft to palpation and Yes No hepatosplenomegaly present Extremity: COMMON NORMALS: no pedal edema Neuro: COMMON NORMALS: patient oriented x3 Psych: COMMON NORMALS: mental status grossly normal Data : 09/25/21 04:04 09/25/21 04:04 A&P Assessment and plan (1) Acute coronary syndrome with high troponin: In a patient without known history of CAD. Pain radiates to right shoulder rather than left but is otherwise fairly classic description for unstable angina. Has risks factors of family history, known hypertension, known hypertriglyceridemia, BMI 32 Status: Acute (2) Transaminitis: Mild. Reports had some elevation when last had blood work by PCP, values not available for comparison. Had COVID at end of . Not grossly volume overloaded. No abdominal pain but some nausea. Status: Acute (3) HTN (hypertension): Chronically on low dose olmesartan Status: Chronic Qualifiers: Hypertension type: primary hypertension Qualified Code(s): I10 - Essential (primary) hypertension (4) Hypertriglyceridemia: Chronically on fenofibrate Status: Chronic (5) BMI 32.0-32.9,adult: Status: Acute (6) Hypothyroidism: Chronically on levothyroxze Status: Chronic Qualifiers: Hypothyroidism type: acquired Qualified Code(s): E03.9 - Hypothyroidism, unspecified (7) Osteoarthritis: With chronic back and neck pain, as well as some joint pains, has prescriptions for hydrocodone and flexeril but takes neither daily Status: Chronic Qualifiers: Osteoarthritis location: multiple joints Osteoarthritis type: primary Qualified Code(s): M15.9 - Polyosteoarthritis, unspecified (8) History of COVID-19: Tested positive via home test 08/08/2021, received monoclonal antibody treatment, was vaccinated prior to infection Status: Chronic Plan Currently admitted to [facility] Continue serial cardiac enzymes 6-hour troponin was 49, delta 21 Continue full anticoagulation Continue nitroglycerin Aspirin and statin therapy Cardiology consultation, have spoken with Dr. Osei, cardiac catheterization this morning Beta-blockade Continue home fenofibrate Continue low-dose ARB Echocardiogram Normal left ventricular size and systolic function, EF 67 %. No ?regional wall motion abnormalities. Grade I/IV diastolic ?dysfunction (abnormal relaxation filling pattern), normal to ?mildly elevated filling pressures. Mild left ventricular ?hypertrophy. ?Thickened mitral valve. ?No other valvular abnormalities. ?Normal chamber sizes. ?No pericardial effusion ?No previous study is available for comparison. Telemetry monitoring Monitor blood pressures with additional medications Continue home levothyroxine Continue home Flonase, Claritin for allergies Continue as needed hydrocodone and Flexeril Lovenox treatment dose will provide appropriate VTE prophylaxis currently Supportive care otherwise Findings, concerns and plans were discussed with patient and his and both were given an opportunity to ask questions Currently anticipate discharge home with outpatient follow-up though will ultimately depend on clinical course Full code Attestations Medical Necessity Statement*: Patient requires hospitalization for chest pain Coding Level of Care Code Acute Armored Machine Operator for patrice Moffett Diagnoses Acute coronary syndrome with high troponin I24.9 Transaminitis R74.01 HTN (hypertension) I10 Hypertension type: primary hypertension Hypertriglyceridemia E78.1 BMI 32.0-32.9,adult Z68.32 Hypothyroidism E03.9 Hypothyroidism type: acquired Osteoarthritis M15.9 Osteoarthritis location: multiple joints Osteoarthritis type: primary History of COVID-19 Z86.16
--- NOTE | 2021-09-25 11:51 | ECG_ITS ---
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 Measurements Intervals [place] Rate: 55 P: 41 [place]: 213 QRS: -9 QRSD: 120 T: 10 QT: 396 QTc: 379 Interpretive Statements SINUS BRADYCARDIA WITH FIRST DEGREE AV BLOCK MODERATE INTRAVENTRICULAR CONDUCTION DELAY [110+ ms QRS DURATION] Compared to ECG 09/24/2021 16:45:47 First degree AV block now present Sinus rhythm no longer present Electronically Signed On 09-25-2021 23:08:15 TICKET PRINTER by Theodore Osei M.D. [id number]
[2021-09-25] MEDS: metoprolol tartrate 25 mg Tablet PO ×2 (11:59→20:14)
[2021-09-25] MEDS: clopidogrel 75 mg Tablet PO (12:00)
[2021-09-25] MEDS: losartan 50 mg Tablet 25 MG PO (12:00)
[2021-09-25] MEDS: morphine 4 mg/mL SDV 1 mL 2 MG IVP (12:48)
[2021-09-25] MEDS: pantoprazole DR 40 mg Tablet PO (12:49)
[2021-09-25] MEDS: fenofibrate 145 mg Tablet PO (12:49)
[2021-09-25] MEDS: loratadine 10 mg Tablet PO (12:49)
--- NOTE | 2021-09-25 15:00 | PC.NURSE ---
pt radial site started to ooz with removal of 3cc air. Replaced 8cc back in to 12cc total. Bleeding stopped, pulse present, good cap refill. will leave cuff inflated for another hour and then will once again begin to slowly remove air per protocol. Dr. Osei aware
[2021-09-25] MEDS: HYDROcodone-acetaminophen 5-325 mg Tablet 1 TAB PO ×2 (16:22→20:14)
[2021-09-25] MEDS: sodium chloride 0.9% 1,000 ML 100 ML IV (16:23)
--- NOTE | 2021-09-25 16:39 | PC.NURSE ---
pt still complaining of r shoulder pain and head ache. nitro paste removed her his request. norco given than was on sep. states that he had this shoulder pain after his surgery last year also. Dr Osei notified of this earlier today, ekg was done, DrAdam came to bedside. He does not believe this to be cardiac related. Dr Can called and he ordered ultram. no further orders,
[2021-09-25] MEDS: bisacodyl 5 mg Tablet 10 MG PO (17:02)
[2021-09-25] MEDS: cyclobenzaprine 10 mg Tablet PO (17:02)
--- NOTE | 2021-09-25 17:25 | PC.NURSE ---
dr can stopped in hallway outside patient room. informed him that patient is complaining of one of the worst headaches of his life. Says he could throw up. Morphine, norco have not improved his condition. I recently gave flexeril, waiting for pharmacy to authorize ultram. Dr. Can said that he would order some antiemetics for the patient. He did not have any other orders or request at this time. Pts heard our discussion in the du. She is aware that I informed Dr. Can of all of the patients symptoms and complaints.
[2021-09-25] MEDS: ALPRAZolam 0.5 mg Tablet 0.25 MG PO (17:38)
[2021-09-25] MEDS: TRAMadol 50 mg Tablet PO (17:38)
--- NOTE | 2021-09-25 19:12 | PM.PN ---
Subjective Subjective: The patient remained chest pain-free. No new symptoms. His vital signs remained stable. Medications: Medication Review Details: Current Medications Acetaminophen (Acetaminophen 325 Mg Tablet) 650 mg PO Q6H PRN PRN Reason: Mild/Mod Pain Or Temp >/= 101 Acetaminophen (Acetaminophen 325 Mg Tablet) 650 mg PO Q6H PRN PRN Reason: MILD PAIN Hydrocodone Bitart/Acetaminophen (Hydrocodone-Acetaminophen 5-325 Mg Tablet) 1 tab PO Q6H PRN PRN Reason: back/neck pain Last Admin: 09/25/21 20:14 Dose: 1 tab Documented by: Al Hydrox/Mg Hydrox/Simethicone (Bsnd-Knu-Jlnerymek-Julieta 30 Ml Udc) 30 ml PO Q15M PRN PRN Reason: INDIGESTION Alprazolam (Alprazolam 0.5 Mg Tablet) 0.25 mg PO TID PRN PRN Reason: ANXIETY Last Admin: 09/25/21 17:38 Dose: 0.25 mg Documented by: Aspirin (Aspirin 81 Mg Chew Tablet) 81 mg PO DAILY [facility] Atorvastatin Calcium (Atorvastatin 40 Mg Tablet) 40 mg PO BEDTIME [facility] Last Admin: 09/25/21 20:14 Dose: 40 mg Documented by: Atropine Sulfate (Atropine 1 Mg/Ml Sdv 1 Ml) 0.5 mg IVP PRN PRN PRN Reason: Symptomatic bradycardia Bisacodyl (Bisacodyl 5 Mg Tablet) 10 mg PO DAILY PRN; Protocol PRN Reason: Constipation (see protocol) Last Admin: 09/25/21 17:02 Dose: 10 mg Documented by: Clopidogrel Bisulfate (Clopidogrel 75 Mg Tablet) 75 mg PO DAILY [facility] Last Admin: 09/25/21 12:28 Dose: Not Given Documented by: Cyclobenzaprine HCl (Cyclobenzaprine 10 Mg Tablet) 10 mg PO TID PRN PRN Reason: MUSCLE SPASMS Last Admin: 09/25/21 17:02 Dose: 10 mg Documented by: Fenofibrate (Fenofibrate 145 Mg Tablet) 145 mg PO DAILY [facility] Last Admin: 09/25/21 12:49 Dose: 145 mg Documented by: Fentanyl (Fentanyl 50 Mcg/Ml Inj 2ml) 50 mcg IVP PRN PRN PRN Reason: PAIN Fluticasone Propionate (Fluticasone Nasal [place] 16gm Btl) 2 spray INTRANASAL DAILY [facility] Last Admin: 09/25/21 13:10 Dose: Not Given Documented by: Sodium Chloride (Sodium Chloride 0.9%) 1,000 mls @ 75 mls/hr IV .[id number] [facility] Last Admin: 09/25/21 21:00 Dose: 75 mls/hr Documented by: Sodium Chloride (Sodium Chloride 0.9%) 1,000 mls @ 100 mls/hr IV .Q10H [facility] Last Infusion: 09/25/21 22:23 Dose: 0 mls/hr Documented by: Levothyroxine Sodium (Levothyroxine 150 Mcg Tablet) 150 mcg PO QAM [facility] Last Admin: 09/25/21 06:00 Dose: 150 mcg Documented by: Loratadine (Loratadine 10 Mg Tablet) 10 mg PO DAILY [facility] Last Admin: 09/25/21 12:49 Dose: 10 mg Documented by: Losartan Potassium (Losartan 50 Mg Tablet) 25 mg PO DAILY [facility] Last Admin: 09/25/21 12:28 Dose: Not Given Documented by: Losartan Potassium (Losartan 50 Mg Tablet) 25 mg PO ONCE [facility] Last Admin: 09/25/21 12:00 Dose: 25 mg Documented by: Magnesium Hydroxide (Magnesium Hydroxide 30 Ml Udc) 30 ml PO DAILY PRN PRN Reason: CONSTIPATION Metoprolol Tartrate (Metoprolol Tartrate 25 Mg Tablet) 25 mg PO BID@0900,2100 [facility] Last Admin: 09/25/21 20:14 Dose: 25 mg Documented by: Morphine Sulfate (Morphine 4 Mg/Ml Sdv 1 Ml) 2 mg IVP Q4H PRN PRN Reason: SEVERE PAIN Last Admin: 09/25/21 12:48 Dose: 2 mg Documented by: Naloxone HCl (Naloxone 0.4 Mg/Ml Sdv) 0.1 mg IVP Q2M PRN PRN Reason: RESPIRATORY RATE < 8/MIN Nitroglycerin (Nitroglycerin 1 Gm/Inch Oint Pkt) 1 inch TOPICAL Q6H [facility] Last Admin: 09/25/21 19:54 Dose: Not Given Documented by: Nitroglycerin (Nitroglycerin 1 Gm/Inch Oint Pkt) 1 inch TOPICAL ONCE [facility] Last Admin: 09/25/21 12:01 Dose: 1 inch Documented by: Nitroglycerin (Nitroglycerin 0.4 Mg Sublingual Tablet) 0.4 mg SUBLINGUAL Q5M PRN PRN Reason: CHEST PAIN Ondansetron HCl (Ondansetron 2 Mg/Ml Sdv 2 Ml) 4 mg IVP Q6H PRN PRN Reason: NAUSEA AND VOMITING Pantoprazole Sodium (Pantoprazole Dr 40 Mg Tablet) 40 mg PO DAILY [facility] Last Admin: 09/25/21 12:49 Dose: 40 mg Documented by: Temazepam (Temazepam 15 Mg Capsule) 15 mg PO BEDTIME PRN PRN Reason: INSOMNIA Vitals/I&O/Wt Last Vital Signs Temp 97.8 F 09/25/21 15:33 Pulse 52 L 09/25/21 17:00 Resp 13 09/25/21 17:00 BP 119/82 09/25/21 17:00 Pulse Ox 93 09/25/21 17:00 09/25/21 09/25/21 09/25/21 06:59 14:59 22:59 Intake Total 0 / 100 1230 / 1230 Output Total 950 / 950 800 / 800 Balance -950 / -850 430 / 430 Weight last 48 hrs Weight 270 lb Physical Exam Narrative: GENERAL: The patient is alert and oriented times three. Not in any acute distress. HEENT: No significant pallor, icterus or lymphadenopathy. The pupils are reactant to light. Oral cavity: There are no mucous membrane lesions. NECK: Trachea appears to be central. No masses noted. No JVD or thyromegaly appreciated. No carotid bruit. RESPIRATORY: Chest is symmetrical. No intercostals muscle retraction or any accessory muscle activation. There is no chest wall tenderness. Breath sounds are heard bilaterally. No rales or rhonchi heard. No evidence of any consolidation. BREASTS: Deferred. HEART: The PMI could not be palpated. No palpable precordial events. S1 and S2 are normal. No S3 or S4 heard. No pericardial rub or any click heard. ABDOMEN: No vessel pulsations or distention. No tenderness. No organomegaly appreciated. No abdominal bruit. Bowel sounds are normally heard. : Deferred. RECTAL: Deferred. LYMPHATIC: No lymphadenopathy noted in the neck or groin. EXTREMITIES: No edema or cyanosis. MUSCULOSKELETAL: No acute joint deformities or swelling. SKIN: There are no significant scars or skin rash noted. NEUROPSYCHIATRIC: The patient is alert and oriented x3. Appears to be in a good mood. The higher functions are grossly within normal limits. No tremors or rigidity noted. Data : 09/25/21 04:04 09/25/21 04:04 Other Labs: Laboratory Last Values WBC 5.3 10^3/uL (4.0-10.0) 09/25/21 04:04 RBC 4.73 10^6/uL (4.1-5.3) 09/25/21 04:04 Hgb 14.0 g/dL (11.7-16.6) 09/25/21 04:04 Hct 43.1 % (42.0-52.0) 09/25/21 04:04 MCV 91.1 fl (80-94) 09/25/21 04:04 MCH 29.6 pg (28.0-34.0) 09/25/21 04:04 MCHC 32.5 g/dL (30.0-36.0) 09/25/21 04:04 RDW 12.9 % (12.1-15.1) 09/25/21 04:04 Plt Count 225 10^3/cmm (130-400) 09/25/21 04:04 MPV 10.7 fL (7.4-10.4) H 09/25/21 04:04 Neut % (Auto) 42.0 % 09/25/21 04:04 Lymph % (Auto) 37.0 % 09/25/21 04:04 Cooper % (Auto) 11.8 % 09/25/21 04:04 Eos % (Auto) 7.5 % 09/25/21 04:04 Baso % (Auto) 1.5 % 09/25/21 04:04 Neut # (Auto) 2.24 10^3/uL (1.8-7.7) 09/25/21 04:04 Lymph # (Auto) 2.0 10^3/uL (0.8-4.8) 09/25/21 04:04 Cooper # (Auto) 0.6 10^3/uL (0.2-0.9) 09/25/21 04:04 Eos # (Auto) 0.4 10^3/uL (0.0-0.8) 09/25/21 04:04 Baso # (Auto) 0.1 10^3/uL (0.0-0.1) 09/25/21 04:04 Nucleated RBC % (auto) 0 % 09/25/21 04:04 Nucleated RBCs # 0.0 /100WBC 09/25/21 04:04 PT 13.10 SECONDS (12.1-14.9) 09/24/21 10:22 INR 0.96 (0.8-1.2) 09/24/21 10:22 APTT 29.2 SECONDS (23.9-36.7) 09/24/21 10:22 D-Dimer 0.32 ug/mIFEU (0-0.59) 09/24/21 10:20 Sodium 138 mmol/L (136-145) 09/25/21 04:04 Potassium 4.4 mmol/L (3.5-5.1) 09/25/21 04:04 Chloride 102 mmol/L (98-107) 09/25/21 04:04 Carbon Dioxide 26 mmol/L (22-29) 09/25/21 04:04 Anion Gap 14.4 (5-19) 09/25/21 04:04 BUN 15 mg/dL (8-23) 09/25/21 04:04 Creatinine 1.1 mg/dL (0.7-1.2) 09/25/21 04:04 GFR Calculation 67.6 mL/min (90-130) L 09/25/21 04:04 Glucose 135 mg/dL (65-115) H 09/25/21 04:04 Calculated Osmolality 289 mOsm/kg (285-295) 09/25/21 04:04 Calcium 9.8 mg/dL (8.5-10.5) 09/25/21 04:04 Phosphorus 4.0 mg/dL (2.5-4.5) 09/25/21 04:04 Magnesium 1.8 mg/dL (1.7-2.3) 09/25/21 04:04 Total Bilirubin 0.6 mg/dL (0.15-1.2) 09/25/21 04:04 AST 43 U/L (0-40) H 09/25/21 04:04 ALT 51 U/L (0-41) H 09/25/21 04:04 Alkaline Phosphatase 70 IU/L (40-130) 09/25/21 04:04 Creatine Kinase 450 U/L (39-308) H* 09/24/21 10:22 CK-MB (CK-2) 5.1 ng/mL (0-10.4) 09/24/21 12:04 CK-MB (CK-2) Rel Index 5.5 % (0.0-5.3) H 09/24/21 10:22 Troponin T Baseline 28 ng/L (0-15) H 09/24/21 10:22 Troponin T 120 Minute 39.22 ng/L (0-15) H 09/24/21 12:04 Delta Troponin T 11.22 ABS# (0-10) H* 09/24/21 12:04 Troponin T Hi Sens 6Hr 49.04 ng/L (0-15) H 09/24/21 16:36 Troponin T Hi Sens 6Hr Delta 21.04 ng/L (0-12) H* 09/24/21 16:36 NT-Pro-B Natriuret Pep 5 pg/mL (0-125) 09/24/21 12:04 Total Protein 6.9 g/dL (6.6-8.7) 09/25/21 04:04 Albumin 4.4 g/dL (3.5-5.2) 09/25/21 04:04 Globulin 2.5 g/dL (1.3-4.6) 09/25/21 04:04 Triglycerides 213 mg/dL (0-150) H 09/25/21 04:04 Cholesterol 196 mg/dL (0-200) 09/25/21 04:04 LDL Cholesterol, Calc 119 mg/dL (50-129) 09/25/21 04:04 HDL Cholesterol 34 mg/dL (60-100) L 09/25/21 04:04 LDL/HDL Ratio 3.50 RATIO (0.00-3.22) H 09/25/21 04:04 Cholesterol/HDL Ratio 5.76 mg/dL (1.0-5.00) H 09/25/21 04:04 A&P Assessment and plan (1) Acute coronary syndrome with high troponin: Patient is a clinical features are consistent with acute coronary syndrome/non-ST elevation myocardial infarction. Currently he is pain-free. The EKG is unremarkable. Echocardiogram also appears to be unremarkable. It is possible that he may have involvement of the left circumflex artery. He may be treated with nitrates, aspirin, Plavix, Lovenox and beta-iván. Need to be closely monitored on telemetry. For further management of his condition, he may benefit from a cardiac catheterization. The risk of bleeding, hematoma, vascular injury, myocardial infarction, CVA, renal failure and other concomitant complications were explained in detail. Patient understood this well and consented to proceed. I made arrangements to have it done as early as possible. Status: Acute (2) HTN (hypertension): Currently the blood pressure is in the normal range. Patient may be continued on the current medications for the time being. Status: Chronic Qualifiers: Hypertension type: primary hypertension Qualified Code(s): I10 - Essential (primary) hypertension (3) Hypothyroidism: Clinically euthyroid. May continue on the current medications. Status: Chronic Qualifiers: Hypothyroidism type: acquired Qualified Code(s): E03.9 - Hypothyroidism, unspecified (4) Hyperlipidemia: Patient may be started on Lipitor 40 mg p.o. now and daily. Status: Inactive Qualifiers: Hyperlipidemia type: mixed hyperlipidemia Qualified Code(s): E78.2 - Mixed hyperlipidemia Plan Patient on the left side catheterization with left and right coronary angiogram and LV angiogram. He was found to have subtotal occlusion of the mid LAD. Also had a mild to moderate disease in the first diagonal and the PDA branch of the right coronary artery. He underwent PCI of the LAD lesion by Dr. Oliva. Currently he remained stable. Attestations Medical Necessity Statement*: Possible discharge home tomorrow. Coding Level of Care Code Acute Business Support Liaison for Brianpatrice Moffett History Detailed Exam Detailed Medical Decision Making High Complexity Diagnoses Acute coronary syndrome with high troponin I24.9 HTN (hypertension) I10 Hypertension type: primary hypertension Hypothyroidism E03.9 Hypothyroidism type: acquired Hyperlipidemia E78.2 Hyperlipidemia type: mixed hyperlipidemia
[2021-09-25] MEDS: atorvastatin 40 mg Tablet PO (20:14)
[2021-09-25] MEDS: sodium chloride 0.9% 1,000 ML 75 ML IV (21:00)
[2021-09-26] VITALS (14 sets, daily range): BP systolic 126–171; BP diastolic 58–102; PULSE 53–67; RESP 8–18; TEMP 36; O2SAT 92–96
[2021-09-26 03:33] LABS: Basophils # 0.1 10^3/uL (0.0-0.1); Basophils % 0.8 %; Eosinophils # 0.4 10^3/uL (0.0-0.8); Eosinophils % 5.5 %; Hematocrit 42.7 % (42.0-52.0); Hemoglobin 14.1 g/dL (11.7-16.6); Lymphocytes # 1.6 10^3/uL (0.8-4.8); Mean Corpuscular Hemoglobin 29.7 pg (28.0-34.0); Mean Corpuscular Volume 90.1 fl (80-94); Mean Platelet Volume 10.9 fL (7.4-10.4); Monocytes # 0.7 10^3/uL (0.2-0.9); Monocytes % 11.1 %; Neutrophils # 3.68 10^3/uL (1.8-7.7); Neutrophils % 57.3 %; Nucleated Red Blood Cells % 0 %; Platelet Count 208 10^3/cmm (130-400); Red Blood Count 4.74 10^6/uL (4.1-5.3); White Blood Count 6.4 10^3/uL (4.0-10.0)
[2021-09-26 04:00] LABS: Alanine Aminotransferase 54 U/L (0-41); Albumin Level 4.3 g/dL (3.5-5.2); Alkaline Phosphatase 64 IU/L (40-130); Blood Urea Nitrogen 11 mg/dL (8-23); Calcium 9.3 mg/dL (8.5-10.5); Carbon Dioxide 24 mmol/L (22-29); Chloride 104 mmol/L (98-107); Globulin 2.2 g/dL (1.3-4.6); Glomerular Filtration Rate 75.5 mL/min (90-130); Glucose 159 mg/dL (65-115); Magnesium 1.8 mg/dL (1.7-2.3); Osmolality Calculated 291 mOsm/kg (285-295); Phosphorus 3.3 mg/dL (2.5-4.5); Sodium 139 mmol/L (136-145); Total Bilirubin 0.5 mg/dL (0.15-1.2); Total Protein 6.5 g/dL (6.6-8.7)
[2021-09-26 04:11] LABS: Anion Gap 15.1 (5-19); Aspartate Amino Transferase 85 U/L (0-40); Potassium 4.1 mmol/L (3.5-5.1)
[2021-09-26] MEDS: levothyroxine 150 mcg Tablet PO (06:03)
[2021-09-26] MEDS: HYDROcodone-acetaminophen 5-325 mg Tablet 1 TAB PO (07:34)
[2021-09-26] MEDS: aspirin 81 mg Chew Tablet PO (08:36)
[2021-09-26] MEDS: loratadine 10 mg Tablet PO (08:37)
[2021-09-26] MEDS: fluticasone nasal spray 16gm Btl 2 SPRAY INTRANASAL (08:37)
[2021-09-26] MEDS: clopidogrel 75 mg Tablet PO (08:37)
[2021-09-26] MEDS: fenofibrate 145 mg Tablet PO (08:37)
[2021-09-26] MEDS: losartan 50 mg Tablet 25 MG PO (08:38)
[2021-09-26] MEDS: pantoprazole DR 40 mg Tablet PO (08:38)
[2021-09-26] MEDS: metoprolol tartrate 25 mg Tablet PO (08:38)
--- NOTE | 2021-09-26 09:19 | PM.PN ---
Subjective Subjective: Patient is feeling okay. He had cardiac radiation followed by PCI of the mid LAD yesterday. He had an uneventful postprocedure course. He has right shoulder pain which has been intermittent and chronic. He also has the local tenderness with right shoulder movements. The pain was thought to be musculoskeletal in origin. EKG showed ischemic changes. Medications: Medication Review Details: Current Medications Acetaminophen (Acetaminophen 325 Mg Tablet) 650 mg PO Q6H PRN PRN Reason: Mild/Mod Pain Or Temp >/= 101 Acetaminophen (Acetaminophen 325 Mg Tablet) 650 mg PO Q6H PRN PRN Reason: MILD PAIN Hydrocodone Bitart/Acetaminophen (Hydrocodone-Acetaminophen 5-325 Mg Tablet) 1 tab PO Q6H PRN PRN Reason: back/neck pain Last Admin: 09/26/21 07:34 Dose: 1 tab Documented by: Al Hydrox/Mg Hydrox/Simethicone (Zgrf-Kkn-Fhymmulfv-Julieta 30 Ml Udc) 30 ml PO Q15M PRN PRN Reason: INDIGESTION Alprazolam (Alprazolam 0.5 Mg Tablet) 0.25 mg PO TID PRN PRN Reason: ANXIETY Last Admin: 09/25/21 17:38 Dose: 0.25 mg Documented by: Aspirin (Aspirin 81 Mg Chew Tablet) 81 mg PO DAILY [facility] Last Admin: 09/26/21 08:36 Dose: 81 mg Documented by: Atorvastatin Calcium (Atorvastatin 40 Mg Tablet) 40 mg PO BEDTIME [facility] Last Admin: 09/25/21 20:14 Dose: 40 mg Documented by: Atropine Sulfate (Atropine 1 Mg/Ml Sdv 1 Ml) 0.5 mg IVP PRN PRN PRN Reason: Symptomatic bradycardia Bisacodyl (Bisacodyl 5 Mg Tablet) 10 mg PO DAILY PRN; Protocol PRN Reason: Constipation (see protocol) Last Admin: 09/25/21 17:02 Dose: 10 mg Documented by: Clopidogrel Bisulfate (Clopidogrel 75 Mg Tablet) 75 mg PO DAILY [facility] Last Admin: 09/26/21 08:37 Dose: 75 mg Documented by: Cyclobenzaprine HCl (Cyclobenzaprine 10 Mg Tablet) 10 mg PO TID PRN PRN Reason: MUSCLE SPASMS Last Admin: 09/25/21 17:02 Dose: 10 mg Documented by: Fenofibrate (Fenofibrate 145 Mg Tablet) 145 mg PO DAILY [facility] Last Admin: 09/26/21 08:37 Dose: 145 mg Documented by: Fentanyl (Fentanyl 50 Mcg/Ml Inj 2ml) 50 mcg IVP PRN PRN PRN Reason: PAIN Fluticasone Propionate (Fluticasone Nasal [place] 16gm Btl) 2 spray INTRANASAL DAILY [facility] Last Admin: 09/26/21 08:37 Dose: 2 spray Documented by: Sodium Chloride (Sodium Chloride 0.9%) 1,000 mls @ 75 mls/hr IV .[id number] [facility] Last Admin: 09/25/21 21:00 Dose: 75 mls/hr Documented by: Sodium Chloride (Sodium Chloride 0.9%) 1,000 mls @ 100 mls/hr IV .Q10H [facility] Last Admin: 09/25/21 23:25 Dose: Not Given Documented by: Levothyroxine Sodium (Levothyroxine 150 Mcg Tablet) 150 mcg PO QAM [facility] Last Admin: 09/26/21 06:03 Dose: 150 mcg Documented by: Loratadine (Loratadine 10 Mg Tablet) 10 mg PO DAILY [facility] Last Admin: 09/26/21 08:37 Dose: 10 mg Documented by: Losartan Potassium (Losartan 50 Mg Tablet) 25 mg PO DAILY [facility] Last Admin: 09/26/21 08:38 Dose: 25 mg Documented by: Losartan Potassium (Losartan 50 Mg Tablet) 25 mg PO ONCE [facility] Last Admin: 09/25/21 12:00 Dose: 25 mg Documented by: Magnesium Hydroxide (Magnesium Hydroxide 30 Ml Udc) 30 ml PO DAILY PRN PRN Reason: CONSTIPATION Metoprolol Tartrate (Metoprolol Tartrate 25 Mg Tablet) 25 mg PO BID@0900,2100 [facility] Last Admin: 09/26/21 08:38 Dose: 25 mg Documented by: Morphine Sulfate (Morphine 4 Mg/Ml Sdv 1 Ml) 2 mg IVP Q4H PRN PRN Reason: SEVERE PAIN Last Admin: 09/25/21 12:48 Dose: 2 mg Documented by: Naloxone HCl (Naloxone 0.4 Mg/Ml Sdv) 0.1 mg IVP Q2M PRN PRN Reason: RESPIRATORY RATE < 8/MIN Nitroglycerin (Nitroglycerin 1 Gm/Inch Oint Pkt) 1 inch TOPICAL Q6H [facility] Last Admin: 09/26/21 01:42 Dose: Not Given Documented by: Nitroglycerin (Nitroglycerin 1 Gm/Inch Oint Pkt) 1 inch TOPICAL ONCE [facility] Last Admin: 09/25/21 12:01 Dose: 1 inch Documented by: Nitroglycerin (Nitroglycerin 0.4 Mg Sublingual Tablet) 0.4 mg SUBLINGUAL Q5M PRN PRN Reason: CHEST PAIN Ondansetron HCl (Ondansetron 2 Mg/Ml Sdv 2 Ml) 4 mg IVP Q6H PRN PRN Reason: NAUSEA AND VOMITING Pantoprazole Sodium (Pantoprazole Dr 40 Mg Tablet) 40 mg PO DAILY [facility] Last Admin: 09/26/21 08:38 Dose: 40 mg Documented by: Temazepam (Temazepam 15 Mg Capsule) 15 mg PO BEDTIME PRN PRN Reason: INSOMNIA Vitals/I&O/Wt Last Vital Signs Temp 96.8 F L 09/26/21 06:59 Pulse 60 09/26/21 06:59 Resp 16 09/26/21 06:59 BP 133/85 09/26/21 06:59 Pulse Ox 96 09/26/21 06:59 09/25/21 09/26/21 09/26/21 22:59 06:59 14:59 Intake Total 600 / 1830 354 / 354 Output Total 550 / 1350 2400 / 3750 Balance 50 / 480 -2400 / -1920 354 / 354 Weight last 48 hrs Weight 270 lb Physical Exam Narrative: GENERAL: The patient is alert and oriented times three. Not in any acute distress. HEENT: No significant pallor, icterus or lymphadenopathy. The pupils are reactant to light. Oral cavity: There are no mucous membrane lesions. NECK: Trachea appears to be central. No masses noted. No JVD or thyromegaly appreciated. No carotid bruit. RESPIRATORY: Chest is symmetrical. No intercostals muscle retraction or any accessory muscle activation. There is no chest wall tenderness. Breath sounds are heard bilaterally. No rales or rhonchi heard. No evidence of any consolidation. BREASTS: Deferred. HEART: The PMI could not be palpated. No palpable precordial events. S1 and S2 are normal. No S3 or S4 heard. No pericardial rub or any click heard. ABDOMEN: No vessel pulsations or distention. No tenderness. No organomegaly appreciated. No abdominal bruit. Bowel sounds are normally heard. : Deferred. RECTAL: Deferred. LYMPHATIC: No lymphadenopathy noted in the neck or groin. EXTREMITIES: No edema or cyanosis. MUSCULOSKELETAL: No acute joint deformities or swelling. SKIN: There are no significant scars or skin rash noted. NEUROPSYCHIATRIC: The patient is alert and oriented x3. Appears to be in a good mood. The higher functions are grossly within normal limits. No tremors or rigidity noted. Data : 09/26/21 02:38 03 02:38 Other Labs: Laboratory Last Values WBC 6.4 10^3/uL (4.0-10.0) 09/26/21 02:38 RBC 4.74 10^6/uL (4.1-5.3) 09/26/21 02:38 Hgb 14.1 g/dL (11.7-16.6) 09/26/21 02:38 Hct 42.7 % (42.0-52.0) 09/26/21 02:38 MCV 90.1 fl (80-94) 09/26/21 02:38 MCH 29.7 pg (28.0-34.0) 09/26/21 02:38 MCHC 33.0 g/dL (30.0-36.0) 09/26/21 02:38 RDW 13.0 % (12.1-15.1) 09/26/21 02:38 Plt Count 208 10^3/cmm (130-400) 09/26/21 02:38 MPV 10.9 fL (7.4-10.4) H 09/26/21 02:38 Neut % (Auto) 57.3 % 09/26/21 02:38 Lymph % (Auto) 25.0 % 09/26/21 02:38 [place] % (Auto) 11.1 % 09/26/21 02:38 Eos % (Auto) 5.5 % 09/26/21 02:38 Baso % (Auto) 0.8 % 09/26/21 02:38 Neut # (Auto) 3.68 10^3/uL (1.8-7.7) 09/26/21 02:38 Lymph # (Auto) 1.6 10^3/uL (0.8-4.8) 09/26/21 02:38 [place] # (Auto) 0.7 10^3/uL (0.2-0.9) 09/26/21 02:38 Eos # (Auto) 0.4 10^3/uL (0.0-0.8) 09/26/21 02:38 Baso # (Auto) 0.1 10^3/uL (0.0-0.1) 09/26/21 02:38 Nucleated RBC % (auto) 0 % 09/26/21 02:38 Nucleated RBCs # 0.0 /100WBC 09/26/21 02:38 PT 13.10 SECONDS (12.1-14.9) 09/24/21 10:22 INR 0.96 (0.8-1.2) 09/24/21 10: APTT 29.2 SECONDS (23.9-36.7) 09/24/21 10: D-Dimer 0.32 ug/mIFEU (0-0.59) 09/24/21 10:20 Sodium 139 mmol/L (136-145) 09/26/21 02:38 Potassium 4.1 mmol/L (3.5-5.1) 09/26/21 02:38 Chloride 104 mmol/L (98-107) 09/26/21 02:38 Carbon Dioxide 24 mmol/L (22-29) 09/26/21 02:38 Anion Gap 15.1 (5-19) 09/26/21 02:38 BUN 11 mg/dL (8-23) 09/26/21 02:38 Creatinine 1.0 mg/dL (0.7-1.2) 09/26/21 02:38 GFR Calculation 75.5 mL/min (90-130) L 09/26/21 02:38 Glucose 159 mg/dL (65-115) H 09/26/21 02:38 Calculated Osmolality 291 mOsm/kg (285-295) 09/26/21 02:38 Calcium 9.3 mg/dL (8.5-10.5) 09/26/21 02:38 Phosphorus 3.3 mg/dL (2.5-4.5) 09/26/21 02:38 Magnesium 1.8 mg/dL (1.7-2.3) 09/26/21 02:38 Total Bilirubin 0.5 mg/dL (0.15-1.2) 09/26/21 02:38 AST 85 U/L (0-40) H 09/26/21 02:38 ALT 54 U/L (0-41) H 09/26/21 02:38 Alkaline Phosphatase 64 IU/L (40-130) 09/26/21 02:38 Creatine Kinase 450 U/L (39-308) H* 09/24/21 10:22 CK-MB (CK-2) 5.1 ng/mL (0-10.4) 09/24/21 12:04 CK-MB (CK-2) Rel Index 5.5 % (0.0-5.3) H 09/24/21 10:22 Troponin T Baseline 28 ng/L (0-15) H 09/24/21 10:22 Troponin T 120 Minute 39.22 ng/L (0-15) H 09/24/21 12:04 Delta Troponin T 11.22 ABS# (0-10) H* 09/24/21 12:04 Troponin T Hi Sens 6Hr 49.04 ng/L (0-15) H 09/24/21 16:36 Troponin T Hi Sens 6Hr Delta 21.04 ng/L (0-12) H* 09/24/21 16:36 NT-Pro-B Natriuret Pep 5 pg/mL (0-125) 09/24/21 12:04 Total Protein 6.5 g/dL (6.6-8.7) L 09/26/21 02:38 Albumin 4.3 g/dL (3.5-5.2) 09/26/21 02:38 Globulin 2.2 g/dL (1.3-4.6) 09/26/21 02:38 Triglycerides 213 mg/dL (0-150) H 09/25/21 04:04 Cholesterol 196 mg/dL (0-200) 09/25/21 04:04 LDL Cholesterol, Calc 119 mg/dL (50-129) 09/25/21 04:04 HDL Cholesterol 34 mg/dL (60-100) L 09/25/21 04:04 LDL/HDL Ratio 3.50 RATIO (0.00-3.22) H 09/25/21 04:04 Cholesterol/HDL Ratio 5.76 mg/dL (1.0-5.00) H 09/25/21 04:04 A&P Assessment and plan (1) Acute coronary syndrome with high troponin: The patient was found to have subtotal occlusion of the mid LAD for which he underwent PCI. Currently seems to be stable with no specific symptoms. Discussed with the patient about lifestyle modification. Compliance to diet, exercise and medication where discussed in detail which is understood well. He needs to be seen by the nurse practitioner next week in follow-up. Status: Acute (2) HTN (hypertension): Currently the blood pressure is in the normal range. Patient may be continued on the current medications for the time being. Status: Chronic (3) Hypothyroidism: Clinically euthyroid. May continue on the current medications. Status: Chronic (4) Hyperlipidemia: Patient may be started on Lipitor 40 mg p.o. now and daily. Status: Inactive Qualifiers: Hyperlipidemia type: mixed hyperlipidemia Qualified Code(s): E78.2 - Mixed hyperlipidemia Plan If the patient continues remain stable, he may be discharged home today from a cardiac standpoint. The patient apparently has been taking Prilosec at home, for the GERD. He may switch that to Protonix 40 mg p.o. daily to minimize interaction with the Plavix. He needs to be seen at the heart care clinic by the nurse practitioner in a week. I will see him in the office in 1 month. In the event of the patient developing any unusual chest pain, palpitations, SOB or any other new symptoms, advised to contact our office. 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
--- NOTE | 2021-09-26 10:12 | PC.CHAP ---
Pastoral Care Encounter/Spiritual Assessment Type of Contact [] Declined roofer assistant visit [] Patient/Family/Request visit [] Outpatient visit [] Follow-up visit [] Physician referral [] Code/Alert [x] Routine visit [] Staff referral [] Actively dying [] Patient sleeping [] Family support [] [] Out of room [] Palliative care [] [x] Receiving care in room [] Pre-surgical visit [] Trauma [] Long length of stay [] ICU visit [] Other: Relational/Emotional Strength [x] Patient feels connected with others/family/visitors/staff [] Distress [] Loneliness/isolation [] Abandonment Spirituality of Patient [x] Person of Massiel [] Attends Synagogue of their [place] [x] Believes in Prayer [] Reads Bible or Methodist materials [] There are Spiritual issues to be addressed Distributor Of Directories Interventions [x] Prayer [x] Active listening [x] Non-anxious presence [x] Spiritual/emotional support [] Crisis/trauma care [x] Spiritual counseling [] Bereavement support [] Provided bereavement packet [] Provided Bible/devotional materials [] Provided toy/stuffed animal, coloring book to patient or family member [] Provided Communion [] Anointing/[place] [] Salvation [x] Completed spiritual assessment [] Other: Impact on Illness or Injury [] Angry [] Fearful [x] Anxious [] Often cries [] Exhaustion [] Unable to work [] Unable to attend buddhist [] Unable to walk/stand [] Unable to read [] Unable to drive [] Unable to eat/drink [] Unable to sleep [] Unable to be with family [] Patient intubated [] Other: Summary dealing with heart had a proceeder some stents feels better and is going home today has a good attitude Time spent with patient 10 mins
--- NOTE | 2021-09-26 10:15 | PM.DCS ---
Discharge Providers Date of Admission: 09/25/21 19:12 Date of Discharge: September 26, 2021 Attending Provider at Admission: Michelle Cote MD Attending Provider at Discharge: Jaswinder aCn MD Primary Care Provider: Loretta Norman APN Diagnoses at Discharge Discharge Diagnosis (1) Acute coronary syndrome with high troponin: Status: Acute (2) HTN (hypertension): Status: Chronic (3) Hypothyroidism: Status: Chronic (4) Hyperlipidemia: Status: Inactive Qualifiers: Hyperlipidemia type: mixed hyperlipidemia Qualified Code(s): E78.2 - Mixed hyperlipidemia Reason for Visit Reason for Visit: chest pain Hospital Course Hospital Course This is a 61-year-old male with obesity, hypertension, hypothyroidism, hypertriglyceridemia, history of COVID, who presents to [facility] for chest pain Patient was admitted to [facility] for chest pain, NSTEMI, status post PCI to mid LAD. No recurrent chest pain, doing well clinically afterwards. Will be discharged on aspirin, statin, Plavix, metoprolol with close follow-up with cardiology as outpatient. Follow with primary care physician in 1 week. Patient was advised if he were to have recurrent chest pain to go to emergency room Physical Exam Const: COMMON NORMALS: no acute distress and patient oriented x3 Resp: COMMON NORMALS: normal respiratory effort, No retractions, No use of accessory muscles and clear to auscultation bilaterally AUSCULTATION: clear to auscultation bilaterally Cardio: COMMON NORMALS: regular rate, regular rhythm, S1 normal heart sound present and S2 normal heart sound present RATE: regular rate RHYTHM: regular rhythm HEART SOUNDS: S1 normal heart sound present and S2 normal heart sound present GI: COMMON NORMALS: Normal to inspection, nondistended, normoactive bowel sounds present, Soft to palpation and non-tender PALPATION: Yes Soft to palpation Extremity: COMMON NORMALS: no pedal edema Neuro: COMMON NORMALS: patient oriented x3 Psych: COMMON NORMALS: mental status grossly normal Discharge Data Studies Completed and Pending Completed Studies During Hospitalization Category Date Time Status XR chest 1V portable [id number] Stat Exams 09/24/21 10:25 Completed CV. 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 Laboratory Results WBC 6.4 10^3/uL (4.0-10.0) 09/26/21 02:38 RBC 4.74 10^6/uL (4.1-5.3) 09/26/21 02:38 Hgb 14.1 g/dL (11.7-16.6) 09/26/21 02:38 Hct 42.7 % (42.0-52.0) 09/26/21 02:38 MCV 90.1 fl (80-94) 09/26/21 02:38 MCH 29.7 pg (28.0-34.0) 09/26/21 02:38 MCHC 33.0 g/dL (30.0-36.0) 09/26/21 02:38 RDW 13.0 % (12.1-15.1) 09/26/21 02:38 Plt Count 208 10^3/cmm (130-400) 09/26/21 02:38 MPV 10.9 fL (7.4-10.4) H 09/26/21 02:38 Neut % (Auto) 57.3 % 09/26/21 02:38 Lymph % (Auto) 25.0 % 09/26/21 02:38 [place] % (Auto) 11.1 % 09/26/21 02:38 Eos % (Auto) 5.5 % 09/26/21 02:38 Baso % (Auto) 0.8 % 09/26/21 02:38 Neut # (Auto) 3.68 10^3/uL (1.8-7.7) 09/26/21 02:38 Lymph # (Auto) 1.6 10^3/uL (0.8-4.8) 03/10/22 02:38 [place] # (Auto) 0.7 10^3/uL (0.2-0.9) 09/26/21 02:38 Eos # (Auto) 0.4 10^3/uL (0.0-0.8) 09/26/21 02:38 Baso # (Auto) 0.1 10^3/uL (0.0-0.1) 09/26/21 02:38 Nucleated RBC % (auto) 0 % 09/26/21 02:38 Nucleated RBCs # 0.0 /100WBC 09/26/21 02:38 PT 13.10 SECONDS (12.1-14.9) 09/24/21 10:22 INR 0.96 (0.8-1.2) 09/24/21 10: APTT 29.2 SECONDS (23.9-36.7) 09/24/21 10:22 D-Dimer 0.32 ug/mIFEU (0-0.59) 09/24/21 10:20 Sodium 139 mmol/L (136-145) 09/26/21 02:38 Potassium 4.1 mmol/L (3.5-5.1) 09/26/21 02:38 Chloride 104 mmol/L (98-107) 09/26/21 02:38 Carbon Dioxide 24 mmol/L (22-29) 09/26/21 02:38 Anion Gap 15.1 (5-19) 09/26/21 02:38 BUN 11 mg/dL (8-23) 09/26/21 02:38 Creatinine 1.0 mg/dL (0.7-1.2) 09/26/21 02:38 GFR Calculation 75.5 mL/min (90-130) L 09/26/21 02:38 Glucose 159 mg/dL (65-115) H 09/26/21 02:38 Calculated Osmolality 291 mOsm/kg (285-295) 09/26/21 02:38 Calcium 9.3 mg/dL (8.5-10.5) 09/26/21 02:38 Phosphorus 3.3 mg/dL (2.5-4.5) 09/26/21 02:38 Magnesium 1.8 mg/dL (1.7-2.3) 09/26/21 02:38 Total Bilirubin 0.5 mg/dL (0.15-1.2) 09/26/21 02:38 AST 85 U/L (0-40) H 09/26/21 02:38 ALT 54 U/L (0-41) H 09/26/21 02:38 Alkaline Phosphatase 64 IU/L (40-130) 09/26/21 02:38 Creatine Kinase 450 U/L (39-308) H* 09/24/21 10:22 CK-MB (CK-2) 5.1 ng/mL (0-10.4) 09/24/21 12:04 CK-MB (CK-2) Rel Index 5.5 % (0.0-5.3) H 09/24/21 10:22 Troponin T Baseline 28 ng/L (0-15) H 09/24/21 10:22 Troponin T 120 Minute 39.22 ng/L (0-15) H 09/24/21 12:04 Delta Troponin T 11.22 ABS# (0-10) H* 09/24/21 12:04 Troponin T Hi Sens 6Hr 49.04 ng/L (0-15) H 09/24/21 16:36 Troponin T Hi Sens 6Hr Delta 21.04 ng/L (0-12) H* 09/24/21 16:36 NT-Pro-B Natriuret Pep 5 pg/mL (0-125) 09/24/21 12:04 Total Protein 6.5 g/dL (6.6-8.7) L 09/26/21 02:38 Albumin 4.3 g/dL (3.5-5.2) 09/26/21 02:38 Globulin 2.2 g/dL (1.3-4.6) 09/26/21 02:38 Triglycerides 213 mg/dL (0-150) H 09/25/21 04:04 Cholesterol 196 mg/dL (0-200) 09/25/21 04:04 LDL Cholesterol, Calc 119 mg/dL (50-129) 09/25/21 04:04 HDL Cholesterol 34 mg/dL (60-100) L 09/25/21 04:04 LDL/HDL Ratio 3.50 RATIO (0.00-3.22) H 09/25/21 04:04 Cholesterol/HDL Ratio 5.76 mg/dL (1.0-5.00) H 09/25/21 04:04 Vitals Last Vital Signs Temp 96.8 F L 09/26/21 06:59 Pulse 60 09/26/21 06:59 Resp 16 09/26/21 06:59 BP 133/85 09/26/21 06:59 Pulse Ox 96 09/26/21 06:59 Discharge Plan Discharge Patient Disposition: Home Condition: Stable Prescriptions: New atorvastatin 40 mg Tablet 40 mg PO BEDTIME 30 Days Qty: 30 0RF losartan 50 mg Tablet 25 mg PO DAILY 30 Days Qty: 30 0RF metoprolol tartrate 25 mg Tablet 25 mg PO BID@0900,2100 30 Days Qty: 30 0RF aspirin [Children's Aspirin] 81 mg Tablet,Chewable 81 mg PO DAILY 30 Days Qty: 30 0RF pantoprazole 40 mg Tablet,Delayed Release (Dr/Ec) 40 mg PO DAILY 30 Days Qty: 30 0RF clopidogrel 75 mg Tablet 75 mg PO DAILY 30 Days Qty: 30 0RF nitroglycerin 0.4 mg Tablet, Sublingual 0.4 mg sublingual Q5M PRN (Reason: Chest Pain) 30 Days Qty: 30 0RF Continued hydrocodone-acetaminophen 5-325 mg tablet 1 tab PO Q6H PRN (Reason: back/neck pain) 0RF loratadine [Claritin] 10 mg tablet 10 mg PO QDAY 0RF fenofibrate nanocrystallized 145 mg tablet 145 mg PO QDAY 0RF levothyroxine 150 mcg capsule 150 mcg PO QDAY 0RF fluticasone propionate [Flonase Allergy Relief] 50 mcg/actuation spray,suspension 2 spray INTRANASAL QDAY 0RF cyclobenzaprine 10 mg tablet 10 mg PO DAILY PRN (Reason: Muscle Pain) 0RF Discontinued Prilosec OTC 20 mg tablet,delayed release (DR/EC) 20 mg PO QDAY 0RF olmesartan 5 mg tablet 5 mg PO DAILY 0RF Discharge Orders: Discharge Order (Routine); Ordered 09/26/21 Ordered By: Jaswinder Can Referrals: Loretta Norman APN [Primary Care Provider] - 1 week Theodore Osei MD [Physician] - 7-10 days Discharge Diet: Cardiac Discharge Activity: Resume usual activity Patient Instructions: Opioid Safety Activity Restrictions/Additional Instructions: -Please take aspirin 81 mg, with Plavix 75 mg, please do not stop these medications -If you develop bloody or black stools or lightheadedness or or dizziness go to the emergency room -If you have recurrent chest pain go to the emergency room -Please slowly gauge your activities, if you feel chest pain or shortness of breath please stop -No heavy lifting above 5 pounds -Please follow-up with cardiology within a week -Please follow-up with primary care physician in 1 week Discharge Attestations Time Spent in Discharge Care*: less than 30 min Quality Metrics Clinical Quality Measures [ Acute Myocardial Infaction { Clinical Trial Participant: No; Contraindication to aspirin: None; Aspirin prescribed; Contraindication to statin: None; Statin prescribed; Contraindication to PCI: None; PCI performed;}] Coding Level of Care Code Acute [facility] note Diagnoses Acute coronary syndrome with high troponin I24.9 HTN (hypertension) I10 Hypothyroidism E03.9 Hyperlipidemia E78.2 Hyperlipidemia type: mixed hyperlipidemia
== END 2021-09-26 11:45 | disposition home or self-care (01) | DRG 247 ==
LOC: ER 18:32 → CSU 19:35
PROVIDERS: Internal Medicine; Internal Medicine Cardiovascular Disease; Admitting Provider Hospitalist; Emergency Provider Family Medicine; PCP Nurse Practitioner; Visit Provider Family Medicine
PROC: 027035Z Dilation of Coronary Artery, One Artery with Two Drug-eluting Intraluminal Devices, Percutaneous Approach (ICD-10-PCS; principal; 2021-09-25 10:00)
DX: I21.4 Non-ST elevation (NSTEMI) myocardial infarction (principal); I25.10 Atherosclerotic heart disease of native coronary artery without angina pectoris; Z86.16 Personal history of COVID-19; I10 Essential (primary) hypertension; E03.9 Hypothyroidism, unspecified; M15.8 Other polyosteoarthritis; J32.9 Chronic sinusitis, unspecified; Z90.49 Acquired absence of other specified parts of digestive tract; Z98.1 Arthrodesis status; Z82.49 Family history of ischemic heart disease and other diseases of the circulatory system; G89.29 Other chronic pain; Z79.891 Long term (current) use of opiate analgesic; E66.8 Other obesity; Z68.32 Body mass index [BMI] 32.0-32.9, adult; K21.9 Gastro-esophageal reflux disease without esophagitis; E78.2 Mixed hyperlipidemia; E78.1 Pure hyperglyceridemia
CPT/HCPCS: 36415; 71045; 80053; 80061; 82550; 82553; 83735; 83880; 84100; 84484; 85025; 85347; 85378; 85610; 85730; 93005; 93306; 93452; 93458; 96372; C1725; C1769; C1874; C1887; C1894; C9600; G0378; J1200; J1644; J1650; J2001; J2250; J2270; J2704; J3010; J3490; J7030; Q9967

== ENCOUNTER 2021-09-29 09:27 | Emergency (ER) | payer OTHER, SELFPAY ==
[2021-09-29 09:37] VITALS: BP 135/88; PULSE 61; RESP 24; TEMP 36.7; O2SAT 98
--- NOTE | 2021-09-29 09:40 | CTR_ITS ---
PROCEDURE INFORMATION: Exam: CT Abdomen And Pelvis Without Contrast Exam date and time: 09/29/2021 9:40 AM Age: 61 years old Clinical indication: Abdominal pain; Flank; Right; Prior surgery; Surgery type: Bowel, gb; Additional info: R flank pain TECHNIQUE: Imaging protocol: Computed tomography of the abdomen and pelvis without contrast. Radiation optimization: All CT scans at this facility use at least one of these dose optimization techniques: automated exposure control; mA and/or kV adjustment per patient size (includes targeted exams where dose is matched to clinical indication); or iterative reconstruction. COMPARISON: CT Abdomen/Pelvis w IV* [id number] 07/05/2019 5:05 AM RADIATION DOSE METRICS: Total DLP (mGy-cm): 9.12 FINDINGS: Diaphragm: Small hiatal hernia. Liver: Hepatic steatosis. Calcified granuloma in the liver. Gallbladder and bile ducts: Cholecystectomy. There is a 5 mm gallstone layering dependently within the distal common bile duct. No upstream biliary dilation. Pancreas: Normal. No ductal dilation. Spleen: Calcified splenic granulomas. Adrenal glands: Normal. No mass. Kidneys and ureters: Mild right hydroureteronephrosis secondary to a 7 mm calculus in the mid right ureter. There is mild right perinephric stranding. Stomach and bowel: Postsurgical changes at the junction of the sigmoid colon and rectum. No bowel obstruction. Appendix: No evidence of appendicitis. Intraperitoneal space: Unremarkable. No free air. No significant fluid collection. Vasculature: Mild burden of atherosclerotic plaque in the abdominal aorta and branch vessels. No aneurysm. Lymph nodes: Unremarkable. No enlarged lymph nodes. Urinary bladder: Unremarkable as visualized. Reproductive: Unremarkable as visualized. Bones/joints: Postsurgical changes of L4-L5 PLIF. Soft tissues: Unremarkable. CT/CT kidney stone [id number] IMPRESSION: 1. Mild right hydroureteronephrosis secondary to a 7 mm calculus in the mid right ureter. 2. Incidental note of choledocholithiasis with a 5 mm calculus layering dependently in the distal common bile duct. No upstream biliary dilation.
[2021-09-29 09:43] VITALS: BP 124/85; PULSE 57; RESP 22; O2SAT 97
--- NOTE | 2021-09-29 09:46 | W.ED.BACK ---
HPI - Back Pain/Injury General: Chief Complaint: Back Pain/Injury Stated Complaint: R flank pain; cardiac hx few days ago Time Seen by Provider: 09/29/21 09:31 Source: patient Mode of arrival: ambulatory Limitations: no limitations History of Present Illness: 61-year-old male states that he woke up roughly 4 to 5 hours ago with a sharp right-sided flank pain. States the pain was all of a sudden did wake him up and is severe in nature he states pain is a 9 out of 10 no history of kidney stones denies any worsening improving factors denies any radiation of his pain. Denies any abdominal tenderness did have a recent cardiac cath denies any chest pain or shortness of breath. Denies any dysuria. Associated symptoms: Deny abdominal pain, chills, fever(s), nausea or vomiting Review of Systems Const: Denies: fever(s), chills, body aches or change in appetite Eyes: Denies: blurry vision or eye discomfort ENMT: Denies: throat pain or dental pain Card: Denies: chest pain Resp: Denies: dyspnea GI: Denies: abdominal pain, nausea, vomiting or diarrhea : Reports: flank pain Musc: Denies: neck pain or back pain Skin/Breast: Denies: rash Neuro: Denies: headache(s) Psych: Denies: depression Man/Lymph: Denies: easy bruising All/Imm: Denies: urticaria PFSH ED PFSH: Medical History COVID-19 07/2021 Diverticulitis HTN (hypertension) Hypertriglyceridemia Hypothyroidism Osteoarthritis Personal history of chronic sinusitis Status post administration of all doses of COVID-19 vaccine series Surgical History History of back surgery History of bowel resection 2019 History of elbow surgery History of laparoscopy S/P cholecystectomy 1994 S/P eye surgery S/P left knee arthroscopy 2012 S/P lumbar spinal fusion 2009 Family History Mother Diabetes Father Diabetes Heart disease Family history of CABG Sister Diabetes Other Heart failure Social History Smoking and tobacco status: never smoked Marital status: Current occupational status: retired 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 Physical Exam Const: COMMON NORMALS: no acute distress, patient oriented x3 and healthy appearing HENMT: COMMON NORMALS: normocephalic and atraumatic HEAD & SCALP: normocephalic and atraumatic Eye: COMMON NORMALS: Equal, round and reactive pupils present and EOMs intact bilaterally PUPIL: Yes Equal, round and reactive pupils present Neck/C-Spine: COMMON NORMALS: full ROM and supple Chest: COMMONS NORMALS: normal inspection of the chest and normal palpation of entire chest wall Resp: COMMON NORMALS: normal respiratory effort, No retractions, No use of accessory muscles and clear to auscultation bilaterally AUSCULTATION: clear to auscultation bilaterally Cardio: COMMON NORMALS: regular rate, regular rhythm and No murmurs present (Cardio) RATE: regular rate RHYTHM: regular rhythm GI: COMMON NORMALS: Normal to inspection, nondistended, normoactive bowel sounds present, Soft to palpation, non-tender and no masses PALPATION: Yes Soft to palpation Extremity: COMMON NORMALS: normal to inspection and full ROM Neuro: COMMON NORMALS: patient oriented x3, moves all extremities and no focal motor deficits Psych: COMMON NORMALS: mental status grossly normal, Normal thought process present and cooperative THOUGHT PROCESS: Normal thought process present Skin: COMMON NORMALS: no rashes or lesions noted and no wounds GENERAL SKIN EXAM: no rashes or lesions noted Course Vital Signs: Vital signs: Vital Signs Temperature 98.1 F 09/29/21 09:37 Pulse Rate 57 L 09/29/21 09:43 Respiratory Rate 18 09/29/21 10:48 Blood Pressure 124/85 09/29/21 09:43 Pulse Oximetry 97 09/29/21 09:43 MDM - Back Pain/Injury Medical Decision Making Patient presents here with a kidney stone patient's pain is much improved here will prescribe him [facility] for home he is to follow-up with Dr. Garner return if worsening he understands agrees to plan. Labs : 09/29/21 09:50 09/29/21 10:22 Radiology Impressions Abdomen/Pelvis CT 09/29/21 09:40 IMPRESSION: 1. Mild right hydroureteronephrosis secondary to a 7 mm calculus in the mid right ureter. 2. Incidental note of choledocholithiasis with a 5 mm calculus layering dependently in the distal common bile duct. No upstream biliary dilation. Laboratory Results WBC 9.1 10^3/uL (4.0-10.0) 09/29/21 09:50 RBC 4.77 10^6/uL (4.1-5.3) 09/29/21 09:50 Hgb 14.5 g/dL (11.7-16.6) 09/29/21 09:50 Hct 42.5 % (42.0-52.0) 09/29/21 09:50 MCV 89.1 fl (80-94) 09/29/21 09:50 MCH 30.4 pg (28.0-34.0) 09/29/21 09:50 MCHC 34.1 g/dL (30.0-36.0) 09/29/21 09:50 RDW 12.7 % (12.1-15.1) 09/29/21 09:50 Plt Count 224 10^3/cmm (130-400) 09/29/21 09:50 MPV 10.9 fL (7.4-10.4) H 09/29/21 09:50 Neut % (Auto) 69.2 % 09/29/21 09:50 Lymph % (Auto) 13.8 % 09/29/21 09:50 Greenlee % (Auto) 12.0 % 09/29/21 09:50 Eos % (Auto) 4.0 % 09/29/21 09:50 Baso % (Auto) 0.8 % 09/29/21 09:50 Neut # (Auto) 6.29 10^3/uL (1.8-7.7) 09/29/21 09:50 Lymph # (Auto) 1.3 10^3/uL (0.8-4.8) 09/29/21 09:50 Greenlee # (Auto) 1.1 10^3/uL (0.2-0.9) H 09/29/21 09:50 Eos # (Auto) 0.4 10^3/uL (0.0-0.8) 09/29/21 09:50 Baso # (Auto) 0.1 10^3/uL (0.0-0.1) 09/29/21 09:50 Nucleated RBC % (auto) 0 % 09/29/21 09:50 Nucleated RBCs # 0.0 /100WBC 09/29/21 09:50 Sodium 137 mmol/L (136-145) 09/29/21 10:22 Potassium 4.5 mmol/L (3.5-5.1) 09/29/21 10:22 Chloride 105 mmol/L (98-107) 09/29/21 10:22 Carbon Dioxide 21 mmol/L (22-29) L 09/29/21 10:22 Anion Gap 15.5 (5-19) 09/29/21 10:22 BUN 17 mg/dL (8-23) 09/29/21 10:22 Creatinine 1.3 mg/dL (0.7-1.2) H 09/29/21 10:22 GFR Calculation 55.8 mL/min (90-130) L 09/29/21 10:22 Glucose 128 mg/dL (65-115) H 09/29/21 10:22 Calculated Osmolality 287 mOsm/kg (285-295) 09/29/21 10:22 Calcium 9.6 mg/dL (8.5-10.5) 09/29/21 10:22 Total Bilirubin 0.9 mg/dL (0.15-1.2) 09/29/21 10:22 AST 55 U/L (0-40) H 09/29/21 10:22 ALT 44 U/L (0-41) H 09/29/21 10:22 Alkaline Phosphatase 68 IU/L (40-130) 09/29/21 10:22 Total Protein 7.6 g/dL (6.6-8.7) 09/29/21 10:22 Albumin 4.3 g/dL (3.5-5.2) 09/29/21 10:22 Globulin 3.3 g/dL (1.3-4.6) 09/29/21 10:22 Lipase 33 U/L (13-60) 09/29/21 10:22 Urine Color Yellow (Yellow) 09/29/21 10:34 Urine Appearance Sl hazy (CLEAR) 09/29/21 10:34 Urine pH 5 (5-7) 09/29/21 10:34 Ur Specific [place] 1.015 (1.005-1.030) 09/29/21 10:34 Urine Protein Neg (Negative) 09/29/21 10:34 Urine Glucose (UA) Norm (Normal) 09/29/21 10:34 Urine Ketones Negative (Negative) 09/29/21 10:34 Urine Blood 3+ (Negative) H 09/29/21 10:34 Urine Nitrate Negative (Negative) 09/29/21 10:34 Urine Bilirubin Neg (Negative) 09/29/21 10:34 Urine Urobilinogen Norm mg/dL (Negative) 09/29/21 10:34 Ur Leukocyte Esterase Negative (Negative) 09/29/21 10:34 Urine RBC Too numerous to cnt /hpf (0-2) H 09/29/21 10:34 Urine WBC 0-4 /hpf (0-5) H 09/29/21 10:34 Ur Squamous Epith Cells 0-4 /hpf (0-5) H 09/29/21 10:34 Amorphous Sediment Not Reportable 09/29/21 10:34 Urine Bacteria Trace /hpf (NONE) 09/29/21 10:34 Discharge Plan Discharge Patient Disposition: Home Clinical Impression: Kidney stone Condition: Stable Prescriptions: New hydrocodone-acetaminophen 5-325 mg tablet 1 tab PO Q6H PRN (Reason: pain) Qty: 14 0RF Flomax 0.4 mg capsule 0.4 mg PO DAILY Qty: 4 0RF No Action hydrocodone-acetaminophen 5-325 mg tablet 1 tab PO Q6H PRN (Reason: back/neck pain) 0RF loratadine [Claritin] 10 mg tablet 10 mg PO QDAY 0RF fenofibrate nanocrystallized 145 mg tablet 145 mg PO QDAY 0RF levothyroxine 150 mcg capsule 150 mcg PO QDAY 0RF fluticasone propionate [Flonase Allergy Relief] 50 mcg/actuation spray,suspension 2 spray INTRANASAL QDAY 0RF cyclobenzaprine 10 mg tablet 10 mg PO DAILY PRN (Reason: Muscle Pain) 0RF losartan 50 mg Tablet 25 mg PO DAILY 30 Days Qty: 30 0RF Children's Aspirin 81 mg Tablet,Chewable 81 mg PO DAILY 30 Days Qty: 30 0RF metoprolol tartrate 25 mg Tablet 25 mg PO BID@0900,2100 30 Days Qty: 30 0RF atorvastatin 40 mg Tablet 40 mg PO BEDTIME 30 Days Qty: 30 0RF clopidogrel 75 mg Tablet 75 mg PO DAILY 30 Days Qty: 30 0RF pantoprazole 40 mg Tablet,Delayed Release (Dr/Ec) 40 mg PO DAILY 30 Days Qty: 30 0RF nitroglycerin 0.4 mg Tablet, Sublingual 0.4 mg sublingual Q5M PRN (Reason: Chest Pain) 30 Days Qty: 30 0RF Discharge Orders: Discharge ED (Routine); Ordered 09/29/21 Ordered By: Frank Velazquez Referrals: Loretta Norman APN [Primary Care Provider] - Jonas Garner MD [Physician] - 1-3 days Discharge Diet: Advance as tolerated Discharge Activity: Resume usual activity Patient Instructions: Kidney Stones (ED), Opioid Safety Coding Level of Care Code ED Injection Molding Supervisor for Briang Fwd Exam Comprehensive
[2021-09-29] MEDS: ondansetron 2 mg/ML SDV 2 mL 4 MG IVP (09:52)
[2021-09-29] MEDS: HYDROmorphone 1 mg/mL INJ 1 mL IVP ×2 (09:53→10:48)
[2021-09-29] MEDS: sodium chloride 0.9% 1,000 ML 999 ML IV (09:58)
[2021-09-29 10:07] LABS: Basophils # 0.1 10^3/uL (0.0-0.1); Basophils % 0.8 %; Eosinophils # 0.4 10^3/uL (0.0-0.8); Hematocrit 42.5 % (42.0-52.0); Hemoglobin 14.5 g/dL (11.7-16.6); Lymphocytes # 1.3 10^3/uL (0.8-4.8); Lymphocytes % 13.8 %; Mean Corpuscular HGB Conc 34.1 g/dL (30.0-36.0); Mean Corpuscular Hemoglobin 30.4 pg (28.0-34.0); Mean Corpuscular Volume 89.1 fl (80-94); Mean Platelet Volume 10.9 fL (7.4-10.4); Monocytes # 1.1 10^3/uL (0.2-0.9); Neutrophils # 6.29 10^3/uL (1.8-7.7); Neutrophils % 69.2 %; Nucleated Red Blood Cells % 0 %; Platelet Count 224 10^3/cmm (130-400); Red Blood Count 4.77 10^6/uL (4.1-5.3); Red Cell Distribution Width 12.7 % (12.1-15.1); White Blood Count 9.1 10^3/uL (4.0-10.0)
[2021-09-29 10:43] LABS: Add Urine Microscopic? YES; Bilirubin Urine Neg (Negative); Blood Urine 3+ (Negative); Glucose Urine UA Norm (Normal); Ketones Urine Negative (Negative); Leukocyte Esterase Urine Negative (Negative); Nitrate Urine Negative (Negative); Protein Urine Neg (Negative); Specific Gravity, Urine 1.015 (1.005-1.030); Urine Appearance SL Hazy (CLEAR); Urine Color Yellow (Yellow); Urobilinogen Urine Norm (Negative); pH Urine 5 (5-7)
[2021-09-29 10:48] VITALS: RESP 18
[2021-09-29 10:50] LABS: RBC Urine TOO NUMEROUS TO CNT /hpf (0-2)
[2021-09-29 10:51] LABS: Add Urine Culture? Yes; Bacteria Urine TRACE /hpf; Squamous Epithelial Cell Urine 0-4 /hpf (0-5); WBC Urine 0-4 /hpf (0-5)
[2021-09-29 11:05] LABS: Alanine Aminotransferase 44 U/L (0-41); Albumin Level 4.3 g/dL (3.5-5.2); Alkaline Phosphatase 68 IU/L (40-130); Aspartate Amino Transferase 55 U/L (0-40); Blood Urea Nitrogen 17 mg/dL (8-23); Calcium 9.6 mg/dL (8.5-10.5); Carbon Dioxide 21 mmol/L (22-29); Chloride 105 mmol/L (98-107); Globulin 3.3 g/dL (1.3-4.6); Glomerular Filtration Rate 55.8 mL/min (90-130); Glucose 128 mg/dL (65-115); Lipase 33 U/L (13-60); Osmolality Calculated 287 mOsm/kg (285-295); Sodium 137 mmol/L (136-145); Total Bilirubin 0.9 mg/dL (0.15-1.2); Total Protein 7.6 g/dL (6.6-8.7)
[2021-09-29 11:09] LABS: Anion Gap 15.5 (5-19)
[2021-09-29 11:10] LABS: Potassium 4.5 mmol/L (3.5-5.1)
--- NOTE | 2021-09-30 11:40 | DCPLANNER ---
Addendum entered by Vanita Reynoso 10/11/21 11:48: Patient had a follow up appointment scheduled for 10.04.[address] Garner - appointment was cancelled. Addendum entered by Vanita Reynoso 10/01/21 06:00: Patient has a follow up appointment scheduled for Monday, October 04, 2021 at 10:[address] Garner. Clinic will call patient with appointment information. Original Note: sales process manager had message to schedule a follow up appointment for patient with ortho. sales process manager emailed patients information to Karan Paige and Julie in the office of Dr. Garner. Patients information will be printed and reviewed. Clinic will call patient with appointment information.
== END 2021-09-29 11:21 | disposition home or self-care (01) ==
PROVIDERS: Emergency Provider Emergency Medicine; PCP Nurse Practitioner
DX: N20.0 Calculus of kidney (principal); Z79.02 Long term (current) use of antithrombotics/antiplatelets; I10 Essential (primary) hypertension
CPT/HCPCS: 36415; 74176; 80053; 81001; 83690; 85025; 87086; 96361; 96374; 96375; 96376; 99284; J1170; J2405; J7030

== ENCOUNTER 2021-10-22 08:31 | Outpatient (RCR) | payer OTHER, SELFPAY | END 2021-11-16 23:59 | disposition home or self-care (01) | LOC: CR 08:31 | PROVIDERS: PCP Nurse Practitioner; Visit Provider Internal Medicine Cardiovascular Disease | DX: Z95.5 Presence of coronary angioplasty implant and graft (principal) | CPT/HCPCS: 93798 ==

== ENCOUNTER → 2021-12-03 11:19 | Outpatient (BNVA) | payer OTHER, SELFPAY | PROVIDERS: PCP Nurse Practitioner; Visit Provider Internal Medicine Cardiovascular Disease | DX: E78.5 Hyperlipidemia, unspecified (principal) | CPT/HCPCS: 80061; 80076 ==

== ENCOUNTER 2022-02-05 09:42 | Outpatient (CLI) | payer OTHER, SELFPAY ==
[2022-02-05 12:09] LABS: Alanine Aminotransferase 45 U/L (0-41); Albumin Level 4.8 g/dL (3.5-5.2); Alkaline Phosphatase 70 IU/L (40-130); Aspartate Amino Transferase 53 U/L (0-40); Chol HDL Ratio 3.17 mg/dL (1.0-5.00); Cholesterol 146 mg/dL (0-200); Globulin 2.5 g/dL (1.3-4.6); HDL Cholesterol 46 mg/dL (60-100); LDL Cholesterol Calculated 77 mg/dL (50-129); LDL HDL Ratio 1.67 RATIO (0.00-3.22); Total Bilirubin 1.1 mg/dL (0.15-1.2); Total Protein 7.3 g/dL (6.6-8.7); Triglycerides 116 mg/dL (0-150)
== END 2022-02-05 09:43 | disposition home or self-care (01) ==
LOC: LAB 09:45
PROVIDERS: PCP Nurse Practitioner; Visit Provider Internal Medicine Cardiovascular Disease
DX: I25.110 Atherosclerotic heart disease of native coronary artery with unstable angina pectoris (principal); E78.1 Pure hyperglyceridemia; R53.83 Other fatigue
CPT/HCPCS: 36415; 80061; 80076

== ENCOUNTER 2022-03-27 15:19 | Emergency (ER) | payer OTHER, SELFPAY ==
[2022-03-27 15:27] VITALS: BP 145/73; PULSE 63; RESP 16; TEMP 36.7; O2SAT 96; BMI 26.1
--- NOTE | 2022-03-27 15:30 | XRR_ITS ---
PROCEDURE INFORMATION: Exam: XR Chest Exam date and time: 03/27/2022 4:42 PM Age: 61 years old Clinical indication: Angina; Additional info: Cp TECHNIQUE: Imaging protocol: Radiologic exam of the chest. Views: 1 view. COMPARISON: CR XR chest 1V portable [id number] 09/24/2021 10:32 AM FINDINGS: Lungs: Unremarkable. No consolidation. Pleural spaces: Unremarkable. No pleural effusion. No pneumothorax. Heart/Mediastinum: Coronary artery atherosclerotic calcifications. Bones/joints: Unremarkable. XR/XR chest 1V portable [id number] IMPRESSION: No acute findings.
[2022-03-27 15:31] VITALS: BP 136/86; PULSE 55; RESP 18; O2SAT 98
--- NOTE | 2022-03-27 15:35 | ECG_ITS ---
[facility] Test Date: 2022-03-27 Pat Name: Avni Carlson Department: Room: Gender: Male Rn Residential: : 1960 Requested By: Jere Anderson Order Number: [id number] Mondragon MD: Jez Oliva M.D. Measurements Intervals [place] Rate: 60 P: 42 OH: 201 QRS: 0 QRSD: 97 T: 32 QT: 393 QTc: 394 Interpretive Statements SINUS RHYTHM Compared to ECG 09/25/2021 12:03:06 Sinus bradycardia no longer present First degree AV block no longer present Intraventricular conduction delay no longer present Electronically Signed On 03-28-2022 14:41:51 CDT by Jez Oliva M.D. [id number]
[2022-03-27 16:17] LABS: Basophils # 0.1 10^3/uL (0.0-0.1); Basophils % 1.2 %; Eosinophils # 0.5 10^3/uL (0.0-0.8); Eosinophils % 9.2 %; Hematocrit 43.2 % (42.0-52.0); Hemoglobin 14.1 g/dL (11.7-16.6); Lymphocytes # 1.9 10^3/uL (0.8-4.8); Lymphocytes % 33.1 %; Mean Corpuscular HGB Conc 32.6 g/dL (30.0-36.0); Mean Corpuscular Hemoglobin 30.1 pg (28.0-34.0); Mean Corpuscular Volume 92.3 fl (80-94); Mean Platelet Volume 10.4 fL (7.4-10.4); Monocytes # 0.6 10^3/uL (0.2-0.9); Monocytes % 11.1 %; Neutrophils # 2.58 10^3/uL (1.8-7.7); Neutrophils % 45.1 %; Nucleated Red Blood Cells % 0 %; Platelet Count 207 10^3/cmm (130-400); Red Blood Count 4.68 10^6/uL (4.1-5.3); Red Cell Distribution Width 13.3 % (12.1-15.1); White Blood Count 5.7 10^3/uL (4.0-10.0)
--- NOTE | 2022-03-27 16:28 | ED_ITS ---
HPI - Chest Pain General: Chief Complaint: Chest Pain Stated Complaint: chest pain Time Seen by Provider: 03/27/22 16:28 History of Present Illness: Mr. Carlson is a 61-year-old gentleman with significant past medical history of VA, hypertension, hyperlipidemia who presents to the emergency department due to chest pain. Reports VA approximately 6 months ago and since that time has not had chest pain until earlier today. He does endorse perhaps mild spicier food last night however nithin [place] while at work had chest pain in the lower sternum and epigastric region. Initially he thought that this was just related to reflux and improved with rest however it subsequently recurred. He reports that this does not feel similar to prior VA which was more a right shoulder joint pain. Intensity symptoms at worst was moderate to severe. Course has improved. No other specific changes in health, exacerbating, or alleviating factors identified. Onset (ago): hour(s) Prior episodes: No Onset: during rest Pain location: substernal Severity: moderate Review of Systems General: Reports: 10 or more systems reviewed and unremarkable except in HPI and below PFSH ED PFSH: Medical History Atherosclerosis of coronary artery COVID-19 07/2021 Diverticulitis HTN (hypertension) Hypertriglyceridemia Hypothyroidism Osteoarthritis Personal history of chronic sinusitis Presence of stent in LAD coronary artery Status post administration of all doses of COVID-19 vaccine series Surgical History History of back surgery History of bowel resection 2019 History of elbow surgery History of laparoscopy S/P cholecystectomy 1994 S/P eye surgery S/P left knee arthroscopy 2012 S/P lumbar spinal fusion 2009 Family History Mother Diabetes Father Diabetes Heart disease Family history of CABG CAD (coronary artery disease), Onset Age: 50 CHF Sister Diabetes Family/Other CAD (coronary artery disease) CHF Diabetes Chronic kidney disease (CKD) Grandfather Stroke Other Heart failure Denies family history of Clotting disorder Dementia Suicide Anesthesia complication Bleeding disorder Lung disease Cancer Social History Smoking and tobacco status: former smoker Alcohol intake: former Marital status: Current occupational status: retired 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 [email or web address] 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 Physical Exam Const: COMMON NORMALS: alert GENERAL APPEARANCE: cooperative and well developed HENMT: COMMON NORMALS: normocephalic and atraumatic HEAD & SCALP: normocephalic and atraumatic Eye: COMMON NORMALS: conjunctivae normal CONJUNCTIVA: Yes conjunctivae normal SCLERA: sclerae normal Neck/C-Spine: COMMON NORMALS: supple GENERAL: Yes trachea midline Resp: COMMON NORMALS: clear to auscultation bilaterally EFFORT & INSPECTIO N: Yes able to speak in complete sentences AUSCULTATION: clear to auscultation bilaterally Cardio: COMMON NORMALS: regular rate and regular rhythm RATE: regular rate RHYTHM: regular rhythm GI: COMMON NORMALS: Soft to palpation PALPATION: Yes Soft to palpation and No Tenderness to palpation present (GI) Extremity: GENERAL: Yes normal exam except as noted and No edema Neuro: COMMON NORMALS: moves all extremities SENSORIUM/ORIENTATION: Yes alert and No Orientation impaired Psych: COMMON NORMALS: mental status grossly normal and Normal thought process present THOUGHT PROCESS: Normal thought process present Course ED course: - Patient was seen and evaluated by me at bedside - Patient placed on cardiac monitors, IV access obtained - Initial evaluation notable for exam as above. - Labs and xrays personally interpreted by me. EKG notable for sinus rhythm with nonspecific ST segment abnormalities. No STEMI. - Labs notable for normal hematologic panel. Metabolic panel similar to baseline. Delta troponin negative. - Imaging notable for no lobar consolidation or pneumothorax - Upon serial reexamination after treatment the patient was improved - Based on patient history, evaluation, and testing as interpreted the most likely cause of the patient's condition is chest pain of uncertain etiology - The results of ED evaluation were discussed with the patient including possible disposition options. I discussed risk stratification by heart score and estimated risk of major adverse cardiac events. The patient wishes to proceed with outpatient management. I discussed prescriptions and/or symptomatic cares (if applicable) including appropriate and responsible use, followup plan, and return precautions. The patient verbalized understanding and felt safe for discharge. - Patient discharged in satisfactory condition. Note: Click bubbles or prepopulated monson in note writing are used for assistance with data collection and billing and are inherently more limited than narrative and other text portions of this note. Please use narrative for additional clinical history and defer to narrative/free test for any case of contradictory information. If information appears in only free text or click bubble it should be considered present or absent as reported. Please contact note communications writer for clarifications of clinical information or contradictory information. MDM is a brief summary, contradictory or erroneous seeming information should be clarified and full note should be reviewed. Vital Signs: Vital signs: Vital Signs Temperature 98.0 F 03/27/22 15:27 Pulse Rate 60 03/27/22 21:21 Respiratory Rate 16 03/27/22 21:21 Blood Pressure 132/77 03/27/22 21:21 Pulse Oximetry 96 03/27/22 21:21 Oxygen Delivery Me thod 03/27/22 18:00 MDM - Chest Pain Medical Decision Making 61-year-old gentleman with cardiac history presenting due to chest pain. Negative delta troponin. Patient feels improved and desires outpatient management. Strict return precautions given. Medical Records I reviewed the patient's medical records. Lab Data I reviewed the patient's lab results. : 03/27/22 16:03 03/27/22 16:03 Radiology Impressions Chest X-Ray 03/27/22 15:30 IMPRESSION: No acute findings. Laboratory Results WBC 5.7 10^3/uL (4.0-10.0) 03/27/22 16:03 RBC 4.68 10^6/uL (4.1-5.3) 03/27/22 16:03 Hgb 14.1 g/dL (11.7-16.6) 03/27/22 16:03 Hct 43.2 % (42.0-52.0) 03/27/22 16:03 MCV 92.3 fl (80-94) 03/27/22 16:03 MCH 30.1 pg (28.0-34.0) 03/27/22 16:03 MCHC 32.6 g/dL (30.0-36.0) 03/27/22 16:03 RDW 13.3 % (12.1-15.1) 03/27/22 16:03 Plt Count 207 10^3/cmm (130-400) 03/27/22 16:03 MPV 10.4 fL (7.4-10.4) 03/27/22 16:03 Neut % (Auto) 45.1 % 03/27/22 16:03 Lymph % (Auto) 33.1 % 03/27/22 16:03 Dickenson % (Auto) 11.1 % 03/27/22 16:03 Eos % (Auto) 9.2 % 03/27/22 16:03 Baso % (Auto) 1.2 % 03/27/22 16:03 Neut # (Auto) 2.58 10^3/uL (1.8-7.7) 03/27/22 16:03 Lymph # (Auto) 1.9 10^3/uL (0.8-4.8) 03/27/22 16:03 Dickenson # (Auto) 0.6 10^3/uL (0.2-0.9) 03/27/22 16:03 Eos # (Auto) 0.5 10^3/uL (0.0-0.8) 03/27/22 16:03 Baso # (Auto) 0.1 10^3/uL (0.0-0.1) 03/27/22 16:03 Nucleated RBC % (auto) 0 % 03/27/22 16:03 Nucleated RBCs # 0.0 /100WBC 03/27/22 16:03 Sodium 141 mmol/L (136-145) 03/27/22 16:03 Potassium 3.8 mmol/L (3.5-5.1) 03/27/22 16:03 Chloride 103 mmol/L (98-107) 03/27/22 16:03 Carbon Dioxide 27 mmol/L (22-29) 03/27/22 16:03 Anion Gap 14.8 (5-19) 03/27/22 16:03 BUN 17 mg/dL (8-23) 03/27/22 16:03 Creatinine 1.4 mg/dL (0.7-1.2) H 03/27/22 16:03 GFR Calculation 51.2 mL/min (90-130) L 03/27/22 16:03 Glucose 99 mg/dL (65-115) 03/27/22 16:03 Calculated Osmolality 294 mOsm/kg (285-295) 03/27/22 16:03 Calcium 9.4 mg/dL (8.5-10.5) 03/27/22 16:03 Total Bilirubin 0.8 mg/dL (0.15-1.2) 03/27/22 16:03 AST 35 U/L (0-40) 03/27/22 16:03 ALT 33 U/L (0-41) 03/27/22 16:03 Alkaline Phosphatase 64 U/L (40-130) 03/27/22 16:03 Troponin T Baseline 7 ng/L (0-15) 03/27/22 16:03 Troponin T 120 Minute 6.54 ng/L (0-15) 03/27/22 18:11 Delta Troponin T -0.46 ABS# (0-10) L 03/27/22 18:11 NT-Pro-B Natriuret Pep 8 pg/mL (0-125) 03/27/22 16:03 Total Protein 6.9 g/dL (6.6-8.7) 03/27/22 16:03 Albumin 4.5 g/dL (3.5-5.2) 03/27/22 16:03 Globulin 2.4 g/dL (1.3-4.6) 03/27/22 16:03 Lipase 46 U/L (13-60) 03/27/22 16:03 Discharge Plan Discharge Patient Disposition: Home Clinical Impression: Chest pain Condition: Stable Prescriptions: No Action loratadine [Claritin] 10 mg tablet 10 mg PO DAILY fenofibrate nanocrystallized 145 mg tablet 145 mg PO DAILY levothyroxine 150 mcg capsule 150 mcg PO DAILY fluticasone propionate [Flonase Allergy Relief] 50 mcg/actuation spray,suspension 2 spray INTRANASAL QDAY pantoprazole 40 mg tablet,delayed release (DR/EC) 40 mg PO DAILY carvedilol 3.125 mg tablet 3.125 mg PO BID Qty: 60 5RF Rx Instructions: must administer with a meal/food atorvastatin 40 mg tablet 40 mg PO BEDTIME Qty: 90 3RF clopidogrel 75 mg tablet 75 mg PO DAILY Qty: 90 3RF losartan 25 mg tablet 25 mg PO DAILY Qty: 90 3RF nitroglycerin 0.4 mg tablet, sublingual 0.4 mg sublingual Q5M PRN (Reason: Chest Pain) Qty: 50 3RF hydrocodone-acetaminophen 5-325 mg tablet 1 tab PO Q6H PRN (Reason: pain) Qty: 14 0RF cyclobenzaprine 10 mg tablet 10 mg PO DAILY PRN (Reason: Muscle Pain) Aspir-81 81 mg Tablet,Delayed Release (Dr/Ec) 81 mg PO DAILY Discharge Orders: Discharge ED (Routine); Ordered 03/27/22 Ordered By: Jere Anderson Referrals: Ashlee Tristan FNP [Primary Care Provider] - Discharge Diet: Usual diet Discharge Activity: Increase activity as tolerated Patient Instructions: Chest Pain (ED) Activity Restrictions/Additional Instructions: Thank you for visiting the emergency department. You were seen evaluated for chest pain. The exact cause your symptoms is unclear though as discussed could be related to cardiac causes. After discussion you are electing to proceed with further outpatient management which I believe is reasonable. I will message case management for follow-up with cardiology. Please continue your medication regimen. Return to the emergency department for worsening symptoms or anything else that you are concerned about a feel needs emergency department evaluation. Coding Level of Care Code ED Customer Consultant for Tien Moffett
[2022-03-27 16:30] VITALS: BP 139/76; PULSE 54; RESP 18; O2SAT 99
[2022-03-27 16:43] LABS: Troponin(5th) Baseline 7 ng/L (0-15)
[2022-03-27 16:52] LABS: Alanine Aminotransferase 33 U/L (0-41); Albumin Level 4.5 g/dL (3.5-5.2); Alkaline Phosphatase 64 U/L (40-130); Anion Gap 14.8 (5-19); Aspartate Amino Transferase 35 U/L (0-40); Blood Urea Nitrogen 17 mg/dL (8-23); Calcium 9.4 mg/dL (8.5-10.5); Carbon Dioxide 27 mmol/L (22-29); Chloride 103 mmol/L (98-107); Globulin 2.4 g/dL (1.3-4.6); Glomerular Filtration Rate 51.2 mL/min (90-130); Glucose 99 mg/dL (65-115); Lipase 46 U/L (13-60); NT Pro B Type Natriuretic Pept 8 pg/mL (0-125); Osmolality Calculated 294 mOsm/kg (285-295); Potassium 3.8 mmol/L (3.5-5.1); Sodium 141 mmol/L (136-145); Total Bilirubin 0.8 mg/dL (0.15-1.2); Total Protein 6.9 g/dL (6.6-8.7)
[2022-03-27 17:28] VITALS: BP 127/79; PULSE 53; RESP 16; O2SAT 100
[2022-03-27 18:00] VITALS: BP 132/77; PULSE 54; RESP 16; O2SAT 96
--- NOTE | 2022-03-27 18:59 | PC.NURSE ---
Report given to BHARATI Dodson
[2022-03-27 19:00] LABS: Troponin 5 2HR 6.54 ng/L (0-15)
[2022-03-27 19:58] LABS: Troponin 5 2HR Delta -0.46 ABS# (0-10)
[2022-03-27 21:21] VITALS: BP 132/77; PULSE 60; RESP 16; O2SAT 96
--- NOTE | 2022-03-28 12:51 | DCPLANNER ---
Addendum entered by Vanita Reynoso 07/01/22 13:16: Patient had a follow up appointment with heart care - patient did attend appointment Addendum entered by Vanita Reynoso 04/01/22 09:12: Patient has a follow up appointment scheduled for Friday, June 03, 2022 at 10:[address] Osei at [facility]. Clinic will call patient with appointment information. Original Note: regional loss prevention manager had message to schedule a follow up appointment scheduled with cardiology. regional loss prevention manager sent patients information to the front office staff at [facility]. Patients information will be printed and reviewed. Clinic will call patient with appointment information.
== END 2022-03-27 19:50 | disposition home or self-care (01) ==
PROVIDERS: Emergency Provider Emergency Medicine; PCP Nurse Practitioner Family
DX: R07.9 Chest pain, unspecified (principal); Z79.02 Long term (current) use of antithrombotics/antiplatelets; Z79.82 Long term (current) use of aspirin; Z87.891 Personal history of nicotine dependence; I25.10 Atherosclerotic heart disease of native coronary artery without angina pectoris; I10 Essential (primary) hypertension
CPT/HCPCS: 36415; 71045; 80053; 83690; 83880; 84484; 85025; 93005; 99285

== ENCOUNTER 2022-06-30 10:28 | Outpatient (CLI) | payer OTHER, SELFPAY ==
--- NOTE | 2022-06-30 10:30 | ECG_ITS ---
[facility] Test Date: 2022-06-30 Pat Name: Avni Carlson Department: Room: Gender: Male Copper Etcher: : 1960 Requested By: Theodore Osei Order Number: [id number] Alanna MD: Theodore Osei M.D. Interpretive Statements NAME OF STUDY: EXERCISE SESTAMIBI STRESS TEST INDICATION: Chest Pain, PROCEDURE: The baseline electrocardiogram showed normal sinus rhythm with normal ST-Ts. At the baseline, the patient's blood pressure was 114/79 mm Hg with a heart rate of 37. The patient exercised for 7 minutes and 30 seconds on a standard Joshua protocol. Patient attained a maximum heart rate of 151 beats per minute(96% of the maximum predicted heart rate) with a blood pressure at the peak exercise of 184/70 mm Hg. The EKG at the peak exercise revealed no significant changes. Patient did not have any chest pain or any significant arrhythmis with the exercise Sestamibi was injected 1 minute prior to the peak exercise During the recovery phase, there were no new changes. Blood pressure at the end of the recovery phase was 143/84 mm Hg with a heart rate of 91 per minute. CONCLUSION: 1. No significant EKG changes with the [treadmill exercise 2. No exercise-induced chest pain or cardiac arrhythmia 3. Good exercise tolerance, attained a maximum of 10.2 METs 4. Sestamibi/Sestamibi perfusion results pending; see separate report. Electronically Signed On 07-15-2022 18:03:57 FAST FOOD SUPERVISOR by Theodore Osei M.D. [id number]
--- NOTE | 2022-06-30 10:32 | NMCV_ITS ---
NM harsha perf SPECT r/s* [id number] Avni Carlson Age: 61 Gender: M : 1960 Exam Date: 06/30/2022 11:44 Ordering Phys: Theodore Osei MD ([email or web address]) Technologist: GATITO Finn Exam Location: [facility] Indications: CORONARY ANGIOPLASTY STATUS STRESS TEST Please [facility] IMAGE PROTOCOL Rest/Stress 1 Exercise Day Radiopharmaceutical Dose (mCi) Administration Site Administered by Rest: Tc-99m 10.6 IV GATITO Woodard Sestamibi Stress:Tc-99m 33.0 IV GATITO Woodard Sestamibi Rest: 30-Jun-2022 60 Discovery 630 Stress: 30-Jun-2022 15 Discovery 630 Radiopharmaceutical was injected at 88 % maximum heart rate. Images obtained in supine and prone position. SPECT RESULTS Technical Quality: Excellent Raw Data Analysis: Normal Image Corrections: Patient motion artifact - motion correction applied Summed Stress Score: 8 Summed Rest Score: 11 Summed Difference Score: 2 PERFUSION FINDINGS Moderate area of moderately decreased tracer uptake was noted in the mid inferior, inferoseptal, anteroseptal and apical lateral regions. Subtle area reversibility was noted in the inferoseptal and anteroseptal regions. FUNCTIONAL RESULTS (calculated via Gated SPECT) Stress Image LV EF (%): 68 Stress EDV (mL):110 TID: 0.66 Stress ESV (mL):35 FUNCTIONAL FINDINGS: Segmental wall motion analysis revealing no gross wall motion abnormalities. IMPRESSIONS 1. Myocardial perfusion imaging revealing moderate area of moderately decreased tracer uptake was noted in the mid inferior, inferoseptal, anteroseptal and apical lateral regions. Subtle area of reversibility was noted in the anteroseptal and inferoseptal regions, suggesting ischemia in the distribution of the left anterior descending artery predominantly with some involvement of the right coronary artery. Because of the inconsistency of this finding, the reliability is questionable 2. Normal LV ejection fraction of 68%. 3. LV wall motion analysis revealing no gross wall motion abnormalities. 4. Normal LV volume. No similar previous studies are available for comparison Dr Theodore Osei MD [facility] (Electronically Signed) Final Date: 30 June 2022 15:57 S
[2022-06-30 10:33] VITALS: BMI 30.8
[2022-06-30 12:34] VITALS: BP 143/84; PULSE 96
== END 2022-06-30 10:29 | disposition home or self-care (01) ==
LOC: CDL 10:29
PROVIDERS: PCP Nurse Practitioner Family; Visit Provider Internal Medicine Cardiovascular Disease
DX: R07.9 Chest pain, unspecified (principal); Z98.61 Coronary angioplasty status
CPT/HCPCS: 36415; 78452; 93017; A9500

== ENCOUNTER → 2022-07-01 11:52 | Outpatient (BNVA) | payer OTHER, SELFPAY | PROVIDERS: PCP Nurse Practitioner Family; Visit Provider Emergency Medicine | DX: R68.89 Other general symptoms and signs (principal); J10.1 Influenza due to other identified influenza virus with other respiratory manifestations | CPT/HCPCS: 87400 ==

== ENCOUNTER 2022-10-04 15:30 | Emergency (ER) | payer OTHER, SELFPAY ==
[2022-10-04 15:37] VITALS: BP 151/100; PULSE 73; RESP 22; TEMP 36.8; O2SAT 96; BMI 30.8
--- NOTE | 2022-10-04 15:46 | ECG_ITS ---
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
--- NOTE | 2022-10-04 16:06 | ED_ITS ---
HPI - Chest Pain General: Chief Complaint: Chest Pain Stated Complaint: Chest Pains Time Seen by Provider: 10/04/22 15:55 History of Present Illness: This 62-year-old male with a past history of coronary artery disease, [place] (about a year ago with 2 stent placement), hypertension and hypothyroidism presents to the ER with right-sided chest pain that started around noon today. Pain has progressively worsened and patient rates it at 8 out of 10 now. There is no nausea, vomiting or fever. Patient was sitting down, not exerting himself at the time pain started. There is no associated shortness of breath. Patient is clinically stable. Review of Systems General: Reports: 10 or more systems reviewed and unremarkable except in HPI and below Card: Reports: chest pain PFSH ED PFSH: Medical History Atherosclerosis of coronary artery COVID-19 07/2021 Diverticulitis HTN (hypertension) Hypertriglyceridemia Hypothyroidism Osteoarthritis Personal history of chronic sinusitis Presence of stent in LAD coronary artery Status post administration of all doses of COVID-19 vaccine series Surgical History History of back surgery History of bowel resection 2019 History of elbow surgery History of laparoscopy S/P cholecystectomy 1994 S/P eye surgery S/P left knee arthroscopy 2012 S/P lumbar spinal fusion 2009 Family History Mother Diabetes Father Diabetes Heart disease Family history of CABG CAD (coronary artery disease), Onset Age: 50 CHF Sister Diabetes Family/Other CAD (coronary artery disease) CHF Diabetes Chronic kidney disease (CKD) Grandfather Stroke Other Heart failure Denies family history of Clotting disorder Dementia Suicide Anesthesia complication Bleeding disorder Lung disease Cancer Social History Smoking and tobacco status: former smoker Alcohol intake: former Marital status: Current occupational status: retired 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 [employer] 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 Physical Exam Const: COMMON NORMALS: no acute distress, patient oriented x3, no limitations and alert Eye: COMMON NORMALS: EOMs intact bilaterally Neck/C-Spine: COMMON NORMALS: full ROM and supple Chest: COMMONS NORMALS: normal inspection of the chest Resp: COMMON NORMALS: normal respiratory effort, No retractions, No use of accessory muscles and clear to auscultation bilaterally AUSCULTATION: clear to auscultation bilaterally Cardio: COMMON NORMALS: regular rate, regular rhythm and No murmurs present (Cardio) RATE: regular rate RHYTHM: regular rhythm OTHER: Mild tenderness on palpation of the right lateral chest wall. No redness, swelling or sign of trauma/infection. GI: COMMON NORMALS: Normal to inspection, nondistended, normoactive bowel sounds present and non-tender : COMMON NORMALS: Yes no CVA tenderness BLADDER/KIDNEY EXAM: Yes no CVA tenderness Back/Pelvis: COMMON NORMALS: no CVA tenderness and no thoracic nor lumbar tenderness Extremity: GENERAL: Yes normal exam except as noted Neuro: COMMON NORMALS: patient oriented x3 and no focal motor deficits SENSORIUM/ORIENTATION: Yes alert Psych: COMMON NORMALS: mental status grossly normal and cooperative Course Vital Signs: Vital signs: Vital Signs Temperature 98.2 F 10/04/22 15:37 Pulse Rate 66 10/04/22 21:14 Respiratory Rate 18 10/04/22 21:14 Blood Pressure 116/66 10/04/22 16:44 Pulse Oximetry 99 10/04/22 21:14 Oxygen Delivery Me thod 10/04/22 18:06 MDM - Chest Pain Medical Decision Making Medical decision making: Patient presents primarily with pain in the right anterior chest with radiation into the shoulder and the back. Given his past history of coronary artery disease, initial troponin and repeat troponin 2 hours later were obtained. It is not consistent with acute coronary syndrome. With concerns for possible pulmonary embolism, CTA chest with PE protocol was obtained. It is negative for PE or any other acute intrathoracic process. Patient's pain is reproducible on palpation and mildly aggravated by certain movements. It is reasonable to believe that pain is most likely musculoskeletal in nature but given his age, he was advised to get an outpatient stress test if pain persists. In the meantime, he will be treated symptomatically. There is no indication to admit him at this time but he was advised to return if he develops any new or worsening symptoms. Patient verbalized understanding and agrees with the plan. Lab Data 10/04/22 16:38 10/04/22 16:38 Radiology Impressions Chest X-Ray 10/04/22 16:15 IMPRESSION: No acute findings. Chest CTA 10/04/22 18:20 IMPRESSION: No evidence of pulmonary embolism. Laboratory Results WBC 5.8 10^3/uL (4.0-10.0) 10/04/22 16:38 RBC 4.79 10^6/uL (4.1-5.3) 10/04/22 16:38 Hgb 14.4 g/dL (11.7-16.6) 10/04/22 16:38 Hct 43.4 % (42.0-52.0) 10/04/22 16:38 MCV 90.6 fl (80-94) 10/04/22 16:38 MCH 30.1 pg (28.0-34.0) 10/04/22 16:38 MCHC 33.2 g/dL (30.0-36.0) 10/04/22 16:38 RDW 12.8 % (12.1-15.1) 10/04/22 16:38 Plt Count 229 10^3/cmm (130-400) 10/04/22 16:38 MPV 9.8 fL (7.4-10.4) 10/04/22 16:38 Neut % (Auto) 47.7 % 10/04/22 16:38 Lymph % (Auto) 26.3 % 10/04/22 16:38 [place] % (Auto) 8.7 % 10/04/22 16:38 Eos % (Auto) 16.1 % 10/04/22 16:38 Baso % (Auto) 1.0 % 10/04/22 16:38 Neut # (Auto) 2.76 10^3/uL (1.8-7.7) 10/04/22 16:38 Lymph # (Auto) 1.5 10^3/uL (0.8-4.8) 10/04/22 16:38 [place] # (Auto) 0.5 10^3/uL (0.2-0.9) 10/04/22 16:38 Eos # (Auto) 0.9 10^3/uL (0.0-0.8) H 10/04/22 16:38 Baso # (Auto) 0.1 10^3/uL (0.0-0.1) 10/04/22 16:38 Nucleated RBC % (auto) 0 % 10/04/22 16:38 Nucleated RBCs # 0.0 /100WBC 10/04/22 16:38 Sodium 139 mmol/L (136-145) 10/04/22 16:38 Potassium 4.1 mmol/L (3.5-5.1) 10/04/22 16:38 Chloride 102 mmol/L (98-107) 10/04/22 16:38 Carbon Dioxide 25 mmol/L (22-29) 10/04/22 16:38 Anion Gap 16.1 (5-19) 10/04/22 16:38 BUN 9 mg/dL (8-23) 10/04/22 16:38 Creatinine 1.0 mg/dL (0.7-1.2) 10/04/22 16:38 GFR Calculation 75.2 mL/min (90-130) L 10/04/22 16:38 Glucose 157 mg/dL (65-115) H 10/04/22 16:38 Calculated Osmolality 290 mOsm/kg (285-295) 10/04/22 16:38 Calcium 9.3 mg/dL (8.5-10.5) 10/04/22 16:38 Total Bilirubin 0.7 mg/dL (0.15-1.2) 10/04/22 16:38 AST 32 U/L (0-40) 10/04/22 16:38 ALT 36 U/L (0-41) 10/04/22 16:38 Alkaline Phosphatase 66 U/L (40-130) 10/04/22 16:38 Troponin T Baseline 8 ng/L (0-15) 10/04/22 16:38 Troponin T 120 Minute 6.00 ng/L (0-15) 10/04/22 19:00 Delta Troponin T -2.00 ABS# (0-10) L 10/04/22 19:00 Total Protein 6.8 g/dL (6.6-8.7) 10/04/22 16:38 Albumin 4.6 g/dL (3.5-5.2) 10/04/22 16:38 Globulin 2.2 g/dL (1.3-4.6) 10/04/22 16:38 Discharge Plan Discharge Patient Disposition: Home Clinical Impression: Atypical chest pain Condition: Stable Prescriptions: No Action loratadine [Claritin] 10 mg tablet 10 mg PO DAILY fenofibrate nanocrystallized 145 mg tablet 145 mg PO DAILY levothyroxine 150 mcg capsule 150 mcg PO DAILY pantoprazole 40 mg tablet,delayed release (DR/EC) 40 mg PO DAILY jezkhrqqgrgsmbh-yhvmdoihq-LP [Bromfed DM] 2-30-10 mg/5 mL syrup 7.5 ml PO Q6H PRN (Reason: cold symptoms) Qty: 160 0RF amoxicillin-pot clavulanate 875-125 mg tablet 1 tab PO BID 10 Days Qty: 20 0RF guaifenesin 600 mg tablet extended release 12hr 600 mg PO Q12H Qty: 20 0RF atorvastatin 40 mg tablet 40 mg PO BEDTIME Qty: 90 3RF clopidogrel 75 mg tablet 75 mg PO DAILY Qty: 90 3RF losartan 25 mg tablet 25 mg PO DAILY Qty: 90 3RF nitroglycerin 0.4 mg tablet, sublingual 0.4 mg sublingual Q5M PRN (Reason: Chest Pain) Qty: 50 3RF carvedilol 3.125 mg tablet 3.125 mg PO BID Qty: 60 5RF Rx Instructions: must administer with a meal/food hydrocodone-acetaminophen 5-325 mg tablet 1 tab PO Q6H PRN (Reason: pain) Qty: 14 0RF cyclobenzaprine 10 mg tablet 10 mg PO DAILY PRN (Reason: Muscle Pain) Aspir-81 81 mg Tablet,Delayed Release (Dr/Ec) 81 mg PO DAILY Discharge Orders: Discharge ED (Routine); Ordered 10/04/22 Ordered By: Yair Mendoza Referrals: Ashlee Tristan FNP [Primary Care Provider] - Discharge Diet: Usual diet Discharge Activity: Resume usual activity Patient Instructions: Opioid Safety, Pain Management Activity Restrictions/Additional Instructions: Take the hydrocodone you have at home as needed for pain. Follow-up with your primary care physician in 3 to 5 days for reevaluation. If your pain does not improve, you may benefit from an outpatient stress test. Return with new or worsening symptoms. Coding Level of Care Code ED Leaf Blender for Tien Moffett
--- NOTE | 2022-10-04 16:15 | XRR_ITS ---
PROCEDURE INFORMATION: Exam: XR Chest Exam date and time: 10/04/2022 4:24 PM Age: 62 years old Clinical indication: Pain; Right-sided; Additional info: Right-sided chest pain TECHNIQUE: Imaging protocol: Radiologic exam of the chest. Views: 1 view. COMPARISON: CR XR chest 1V portable [id number] 03/27/2022 4:42 PM FINDINGS: Lungs: Unremarkable. No consolidation. Pleural spaces: Unremarkable. No pleural effusion. No pneumothorax. Heart/Mediastinum: Unremarkable. No cardiomegaly. Bones/joints: Unremarkable. XR/XR chest 1V portable [id number] IMPRESSION: No acute findings.
[2022-10-04 16:39] VITALS: RESP 18
[2022-10-04] MEDS: morphine 4 mg/mL SDV 1 mL IVP (16:39)
[2022-10-04 16:44] VITALS: BP 116/66; PULSE 64; O2SAT 96
[2022-10-04 16:46] LABS: Basophils # 0.1 10^3/uL (0.0-0.1); Eosinophils # 0.9 10^3/uL (0.0-0.8); Eosinophils % 16.1 %; Hematocrit 43.4 % (42.0-52.0); Hemoglobin 14.4 g/dL (11.7-16.6); Lymphocytes # 1.5 10^3/uL (0.8-4.8); Lymphocytes % 26.3 %; Mean Corpuscular HGB Conc 33.2 g/dL (30.0-36.0); Mean Corpuscular Hemoglobin 30.1 pg (28.0-34.0); Mean Corpuscular Volume 90.6 fl (80-94); Mean Platelet Volume 9.8 fL (7.4-10.4); Monocytes # 0.5 10^3/uL (0.2-0.9); Monocytes % 8.7 %; Neutrophils # 2.76 10^3/uL (1.8-7.7); Neutrophils % 47.7 %; Nucleated Red Blood Cells % 0 %; Platelet Count 229 10^3/cmm (130-400); Red Blood Count 4.79 10^6/uL (4.1-5.3); Red Cell Distribution Width 12.8 % (12.1-15.1); White Blood Count 5.8 10^3/uL (4.0-10.0)
[2022-10-04 17:09] LABS: Alanine Aminotransferase 36 U/L (0-41); Albumin Level 4.6 g/dL (3.5-5.2); Alkaline Phosphatase 66 U/L (40-130); Anion Gap 16.1 (5-19); Aspartate Amino Transferase 32 U/L (0-40); Blood Urea Nitrogen 9 mg/dL (8-23); Calcium 9.3 mg/dL (8.5-10.5); Carbon Dioxide 25 mmol/L (22-29); Chloride 102 mmol/L (98-107); Globulin 2.2 g/dL (1.3-4.6); Glomerular Filtration Rate 75.2 mL/min (90-130); Glucose 157 mg/dL (65-115); Osmolality Calculated 290 mOsm/kg (285-295); Potassium 4.1 mmol/L (3.5-5.1); Sodium 139 mmol/L (136-145); Total Bilirubin 0.7 mg/dL (0.15-1.2); Total Protein 6.8 g/dL (6.6-8.7)
[2022-10-04 17:11] LABS: Troponin(5th) Baseline 8 ng/L (0-15)
--- NOTE | 2022-10-04 18:04 | ECG_ITS ---
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
[2022-10-04 18:06] VITALS: O2SAT 98
--- NOTE | 2022-10-04 18:20 | CTR_ITS ---
PROCEDURE INFORMATION: Exam: CTA Chest With Contrast Exam date and time: 10/04/2022 6:49 PM Age: 62 years old Clinical indication: Pain; Right-sided; Prior surgery; Surgery type: Heart stents; Additional info: Right-sided chest pain TECHNIQUE: Imaging protocol: Computed tomographic angiography of the chest with contrast. 3D rendering (Not supervised by radiologist): MIP and/or 3D reconstructed images were created by the technologist. Radiation optimization: All CT scans at this facility use at least one of these dose optimization techniques: automated exposure control; mA and/or kV adjustment per patient size (includes targeted exams where dose is matched to clinical indication); or iterative reconstruction. Contrast material: OMNI 350; Contrast volume: 100 ml; Contrast route: INTRAVENOUS (IV); REPORTING DATA: Count of CT and Cardiac NM exams in prior 12 months: This patient has received [address] and 0 known cardiac nuclear medicine studies in the 12 months prior to the current study. COMPARISON: CR (CHEST, ) 10/04/2022 4:24 PM RADIATION DOSE METRICS: Total DLP (mGy-cm): 1015.9 FINDINGS: Pulmonary arteries: There is no evidence of filling defects within the pulmonary arterial circulation to suggest pulmonary embolism. Aorta: There is no thoracic aortic aneurysm or dissection. Lungs: No focal pulmonary infiltrate is identified. Pleural spaces: Unremarkable. No pneumothorax. No pleural effusion. Heart: Unremarkable. No cardiomegaly. No pericardial effusion. Coronary arteries: There is a stent in the LAD coronary artery. Lymph nodes: There are calcified left hilar lymph nodes in keeping with old granulomatous disease. There is no evidence of lymphadenopathy. Gallbladder and bile ducts: There has been a cholecystectomy. Spleen: The spleen demonstrates punctate calcifications, consistent with remote granulomatous organism exposure. Bones/joints: Unremarkable. No acute fracture. Soft tissues: Unremarkable. CT/CT angio chest PE protcl [id number] IMPRESSION: No evidence of pulmonary embolism.
[2022-10-04] MEDS: iohexol 350 mg/mL 500 mL Btl (per mL) IV (18:27)
[2022-10-04 21:14] VITALS: PULSE 66; RESP 18; O2SAT 99
== END 2022-10-04 21:13 | disposition home or self-care (01) ==
PROVIDERS: Emergency Provider Family Medicine; PCP Nurse Practitioner Family
DX: R07.89 Other chest pain (principal); I10 Essential (primary) hypertension; E03.9 Hypothyroidism, unspecified; E78.1 Pure hyperglyceridemia; I25.10 Atherosclerotic heart disease of native coronary artery without angina pectoris; I25.2 Old myocardial infarction; Z79.82 Long term (current) use of aspirin; Z86.16 Personal history of COVID-19; Z87.891 Personal history of nicotine dependence; Z95.5 Presence of coronary angioplasty implant and graft
CPT/HCPCS: 71045; 71275; 80053; 84484; 85025; 93005; 96374; 99285; J2270; Q9967

== ENCOUNTER → 2023-10-08 13:17 | Outpatient (BNVA) | payer MEDICARE, OTHER, SELFPAY | PROVIDERS: PCP Nurse Practitioner Family; Referring Provider Nurse Practitioner Family; Visit Provider Student in an Organized Health Care Education/Training Program | DX: M77.11 Lateral epicondylitis, right elbow | CPT/HCPCS: 73080; 99204 ==

== ENCOUNTER → 2024-03-10 09:44 | Outpatient (BNVA) | payer MEDICARE, OTHER, SELFPAY | PROVIDERS: PCP Nurse Practitioner Family; Visit Provider Internal Medicine Cardiovascular Disease | DX: I25.10 Atherosclerotic heart disease of native coronary artery without angina pectoris (principal); I10 Essential (primary) hypertension; E78.1 Pure hyperglyceridemia; E03.8 Other specified hypothyroidism; F17.200 Nicotine dependence, unspecified, uncomplicated | CPT/HCPCS: 99214 ==

== ENCOUNTER → 2024-11-02 10:34 | Outpatient (BNVA) | payer MEDICARE, OTHER, SELFPAY | PROVIDERS: PCP Nurse Practitioner Family; Visit Provider Nurse Practitioner Family | DX: I25.10 Atherosclerotic heart disease of native coronary artery without angina pectoris (principal); I10 Essential (primary) hypertension; E78.5 Hyperlipidemia, unspecified; E78.1 Pure hyperglyceridemia; E03.9 Hypothyroidism, unspecified; Z95.5 Presence of coronary angioplasty implant and graft; I25.2 Old myocardial infarction; Z87.891 Personal history of nicotine dependence; Z79.82 Long term (current) use of aspirin; I25.110 Atherosclerotic heart disease of native coronary artery with unstable angina pectoris | CPT/HCPCS: 93005; 99214 ==

== ENCOUNTER 2024-11-22 07:18 | Outpatient (CLI) | payer MEDICARE, OTHER, SELFPAY ==
[2024-11-22 07:51] VITALS: BMI 36.6
--- NOTE | 2024-11-22 07:53 | ECG_ITS ---
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 Interpretive Statements Lung unchanged pre/post procedure; Intraprocedure shortess of breath; Symptoms resoled by discharge PROCEDURE: The baseline electrocardiogram showed normal sinus rhythm with normal ST-Ts. Right bundle branch block pattern. Some nonspecific ST changes. At the baseline, the patient's blood pressure was 118/86 mm Hg with a heart rate of 66. The patient exercised for 8 minutes on a standard Joshua protocol. Patient attained a maximum heart rate of 150 beats per minute(97% of the maximum predicted heart rate) with a blood pressure at the peak exercise of 174/72 mm Hg. The EKG at the peak exercise revealed no significant changes. Patient did not have any chest pain or any significant arrhythmis with the exercise Sestamibi was injected 1 minute prior to the peak exercise During the recovery phase, there were no new changes. Blood pressure at the end of the recovery phase was 185/92 mm Hg with a heart rate of 85 per minute. CONCLUSION: 1. No significant EKG changes with the [treadmill exercise 2. No exercise-induced chest pain or cardiac arrhythmia 3. Fair exercise tolerance, attained a maximum of 10.2 METs 4. Sestamibi/Sestamibi perfusion results pending; see separate report. Electronically Signed On 11-28-2024 14:19:17 CDT by Theodore Osei M.D. [id number]
--- NOTE | 2024-11-22 07:54 | NMCV_ITS ---
NM harsha perf SPECT r/s* [id number] Avni Carlson Age: 64 Gender: M : 1960 Exam Date: 11/22/2024 08:39 Ordering Phys: Liliana De Paz Technologist: GATITO Mckay Exam Location: [facility] Indications: CP STRESS TEST Please see separate stress test report in [facility] for full findings IMAGE PROTOCOL Rest/Stress 1 Exercise Day Radiopharmaceutical Dose (mCi) Administration Site Administered by Rest: Tc-99m 10.5 IV Lisa Nguyen, CONCRETE BATCHING PLANT OPERATOR Sestamibi Stress:Tc-99m 33 IV Lisa Pierregle, CONCRETE BATCHING PLANT OPERATOR Sestamibi Rest: 22-Nov-2024 60 Discovery 630 Stress: 22-Nov-2024 15 Discovery 630 Radiopharmaceutical was injected at 90 % maximum heart rate. Images obtained in supine and prone position. SPECT RESULTS Technical Quality: Good Raw Data Analysis: Normal Image Corrections: No attenuation or motion correction applied Summed Stress Score: 0 Summed Rest Score: 8 Summed Difference Score: 0 PERFUSION FINDINGS Patchy areas of decreased tracer uptake were noted in the inferior and apical regions with no significant reversibility. FUNCTIONAL RESULTS (calculated via Gated SPECT) Stress Image LV EF (%): 66 Stress EDV (mL):111 TID: 0.63 Stress ESV (mL):38 FUNCTIONAL FINDINGS: Segmental wall motion analysis revealing no gross wall motion abnormalities. IMPRESSIONS 1. Myocardial perfusion imaging revealing patchy areas of persistent decreased tracer uptake in the inferior wall and apical regions, suggestive of myocardial scarring versus attenuation artifact 2. Normal LV ejection fraction of 66%. 3. LV wall motion analysis revealing no gross wall motion abnormalities. 4. Normal LV volume Low probability for coronary ischemia, based on the above findings Dr Theodore Osei MD [facility] (Electronically Signed) Final Date: 22 Nov 2024 13:50 S
[2024-11-22 09:25] VITALS: BP 185/92; PULSE 89
== END 2024-11-22 07:19 | disposition home or self-care (01) ==
PROVIDERS: PCP Nurse Practitioner Family; Visit Provider Nurse Practitioner Family
DX: R07.9 Chest pain, unspecified (principal); R93.1 Abnormal findings on diagnostic imaging of heart and coronary circulation
CPT/HCPCS: 36415; 78452; 93017; A9500

== ENCOUNTER 2025-07-10 06:21 | Outpatient (CLI) | payer MEDICARE, OTHER, SELFPAY ==
--- NOTE | 2025-07-10 06:30 | USCV_ITS ---
Avni Carlson Age: 64 Gender: M : 1960 Exam Date: 07/10/2025 06:38 Ordering Phys: Arleen Hernandez MD Technologist: DEMARIO Exam Location: [facility] [place] Indication: Screening HISTORY: Diameter (cm) AP x Transverse x Length Velocity (cm/s) Waveform Prox Aorta: 2.50 x 2.50 x 75.90 Triphasic Mid Aorta: 2.40 x 2.40 x 82.10 Triphasic Distal Aorta: 2.00 x 2.20 x 63.50 Triphasic Right Iliac Prox: 1.41 x 1.49 x 72.70 Triphasic Left Iliac Prox: 1.46 x 1.54 x 113.80 Triphasic Stent Prox Landing x x Aneurysmal Sac Max x x Lt Lat Sac Dim Rt Lat Sac Dim Stent Dist Landing x x Right Iliac Stent x x Left Iliac Stent x x Right Renal Art Left Renal Art FINDINGS: CONCLUSIONS No evidence of abdominal aortic or bilateral iliac aneurysm. Moderate aortic atheromatous disease Alfonso Perry MD (Electronically Signed) Final Date: 10 July 2025 10:11 S
== END 2025-07-10 06:22 | disposition home or self-care (01) ==
LOC: RAD 06:23
PROVIDERS: PCP Family Medicine; Visit Provider Family Medicine
DX: Z13.6 Encounter for screening for cardiovascular disorders (principal); I70.0 Atherosclerosis of aorta
CPT/HCPCS: 76706